=== PATIENT | female | born 1955 | race Caucasian/White ===

== ENCOUNTER 2016-09-20 08:27 | Day surgery (SDC) | payer OTHER ==
[2016-09-20] VITALS (8 sets, daily range): BP systolic 107–150; BP diastolic 59–97; PULSE 53–60; RESP 12–17; O2SAT 95–99
[~2016-09-20] VITALS: Ht 167.6 cm; Wt 74.8 kg
[~2016-09-20 08:27] MED LIST: ALBU8.5H4 IH; BUPR100T6 PO; GABA-502 PO; GUAN2TAB PO; LISI-567 PO; LOVA20TA PO; METF-496 PO; METF10002 PO; PROZ20 PO
[2016-09-20] MEDS ORDERED: Ondansetron 2 mg/mL 2 mL Inj ONE (08:28)
[2016-09-20] MEDS ORDERED: Propofol 10,000 mCg/mL 20 mL Inj ONE (08:28)
[2016-09-20] MEDS ORDERED: fentaNYL-PF 50 mCg/mL 2 mL Inj ONE ×2 (08:28→09:07)
[2016-09-20] MEDS ORDERED: Lactated Ringer's 1,000 ML IV ONE (09:11)
[2016-09-20] MEDS: levoFLOXacin Inj 500 MG in IV Premix 1 EACH IV ONE ×2 (11:23→11:42)
[2016-09-20] MEDS ORDERED: fentaNYL-PF 50 mCg/mL 2 mL Inj IVPUSH PRN (11:25)
[2016-09-20] MEDS ORDERED: Dexamethasone 4 mg/mL Inj IVPUSH PRN (11:25)
[2016-09-20] MEDS ORDERED: MetoCLOpramide 5 mg/mL 2 mL Inj IVPUSH PRN (11:25)
[2016-09-20] MEDS ORDERED: HYDROmorphone 1 mg/mL Inj IVPUSH PRN (11:25)
[2016-09-20] MEDS ORDERED: Lactated Ringer's 500 ML IV PRN (11:25)
[2016-09-20] MEDS ORDERED: Ondansetron 2 mg/mL 2 mL Inj IVPUSH PRN (11:25)
[2016-09-20] MEDS ORDERED: EPHEDrine Sulfate 50 mg/mL Inj IVPUSH PRN (11:25)
[2016-09-20] MEDS ORDERED: Phenylephrine 10,000 mCg/mL Inj IVPUSH PRN (11:25)
--- NOTE | 2016-09-20 11:25 | PCM.HPANE ---
Patient Data Date of Service: Sep 20, 2016 Surgeon Admitting Provider: Attending Provider:Velia De Los Santos MD Primary Care Physician:Yusuf Other Provider:Lila Boyd Anesthesia Reason for Visit Left Ureteral Stone Ht/WT & BMI Height (Feet): 5 Height (Inches): 6.00 Weight (Kilograms): 74.800 Body Mass Index 26.00 Allergies Coded Allergies: latex (Verified Allergy, Severe, HIVES, 05/06/14) Past Anesthesia History Anesthesia History: Denies:: Abnormal Airway, Anesthesia Reactions, Difficult Intubation, Fam Anesthesia Reaction, Fam Malignant Hypertherm, Malignant Hyperthermia Diabetes History Hx Diabetes?: Yes (type II) Type of Diabetes: Type II Glycemic Control: Oral Medication Current Bedside Blood Glucose: 144 MRSA MRSA: Yes (10 yrs ago) Medications Hypertension Medication: Yes (Lisinopril) Home Meds Incl Beta Patt: No Reported Medications Guanfacine 2 Mg Tablet2 Mg PO HS 09/19/16 Metformin ER 1,000 Mg Tablet1,000 Mg PO HS Ref 0 09/19/16 Albuterol HFA 8.5 Gm Hfa.aer.ad1 Puff IH Q4 #1 INHALER Ref 0 05/06/14 Lisinopril 20 Mg Tayatx84 Mg PO DAILY 30 Days Ref 0 05/06/14 Bupropion (Wellbutrin)100 Mg Pbfeqp085 Mg PO DAILY 30 Days Ref 0 05/06/14 Fluoxetine (Prozac)20 Mg Cap60 Mg PO DAILY 30 Days Ref 0 05/06/14 Gabapentin 300 Mg Lsidxlk229 Mg PO TID 30 Days Ref 0 05/06/14 Metformin 1,000 Mg Tablet1,000 Mg PO AM 30 Days Ref 0 05/06/14 Discontinued Reported Medications Lovastatin 20 Mg Bapbdy88 Mg PO HS #30 TABLET Ref 0 05/06/14 Guanfacine HCl (Tenex)1 Mg Tablet1.5 Mg PO QPM 05/06/14 Guanfacine HCl (Tenex)1 Mg Tablet0.5 Mg PO QAM 05/06/14 Omeprazole Magnesium (Omeprazole)20 Mg Capsule.dr40 Mg PO DAILY 30 Days Ref 0 05/06/14 Chlorthalidone 25 Mg Xrfwmk02 Mg PO DAILY #30 TABLET 05/06/14 Metformin 500 Mg Zyeihp925 Mg PO PM 30 Days Ref 0 05/06/14 History History of ENT Problems?: No HEENT History: Denies:: Abnormal Airway Cataracts Difficult Intubation Dysphagia Glaucoma Hearing Problem Sinus Problem TMJ Denture Type: Full- Upper Teeth Condition: Within Normal Limits Hx of Heart Problems?: Yes Cardiovascular History: Positive for:: Hypertension Denies:: Abdominal Aortic Aneurism Atrial Fibrillation Cardiac Surgery Chest Pain Congestive Heart Failure Coronary Artery Disease Edema Heart Murmur Irregular Heartbeat Pacemaker Peripheral Vascular Rheumatic Fever Thrombophlebitis Valvular Heart Disease Hx of Respiratory Problem?: Yes Respiratory History: Positive for:: COPD Dyspnea (RINCON W/ WHEEZING) Use of Inhalers / NEBS (Albuterol) Denies:: Asthma Chest Surgery Emphysema Hemoptysis Oxygen Administration Pneumonia Pulmonary Embolism Tuberculosis Use of C-PAP Machine Other History/Comment Patient poorly optimized from respratory standpoint. PFTs per pt with "45% of normal lung function". I cannot find her formal PFTs, but I believe the to be a very good historian. She is on albuterol PRN. She has taen it in my presence today. If this were not an urgent procedure, I would consider postponing surgery. However, she has intermittent fevers and has had some serious complications in the past from UTIs. She should have surgery today. I consider spinal anesthesia, however, she has stage 4 cirrhosis and per my review of the litterature, there is no benefit in spinal anesthesia vs GA in preventing post-op respiratory complications. I acknowledge that in general, spinal may be superior to GA to minimizing reparatory complications, but the patient also expresses significant anxiety about spinal anesthesia. For this very shot procedure, I feel that a GA is an acceptable approach. I have consented them of the risk of post-op respratory complications. More importantly, I have verified that during my H&P, we have set up an appointment with her PCP to address her COPD for an upcoming, and more invasive, planned procedure. Hx Neurologic Problems?: No Neurological History: Denies:: Alzheimer's Disease CVA Dementia Dizziness Headaches Multiple Sclerosis Parkinson's Disease Seizures TIA Hx of GI Problems?: Yes Gastrointestinal History: Positive for:: Cirrhosis Hx of Problems?: Yes Genitourinary History: Positive for:: Kidney Stones (LT KIDNEY/URETER CALCULOUS=CURRENT PROBLEM) Urinary Tract Infection (Reoccuring possibly from retained stone) Denies:: HX of Hemodialysis HX of Peritoneal Dialysis: No Female Hx: Denies:: Currently (S/P C/S) Endometriosis Pelvic Inflammatory Problems with Breasts? Skin History: Positive for:: History Skin Disorders? (RASHES for years bx negative) Denies:: Pressure Ulcers Hx Musculoskeletal Problems?: No Musculoskeletal History: Positive for:: Fibromyalgia Denies:: Back Injury Degenerative Joint Joint Replacement Musculoskeletal Trauma Myasthenia Gravis Osteoarthritis Rheumatoid Arthritis Systemic Lupus Hx of Psycho/Social Problems?: Yes Psycho Social History: Positive for:: Anxiety Hx Depression Denies:: Bipolar Disorder Suicide Attempt Hx Surgeries?: Yes (Kidney stone with stent) Hx Any Other Health Problems?: Yes Other History: Positive for:: Hospitalization (Kidney stones) Denies:: Cancer Endocrine Disease Thyroid Disease History Blood Transfusions: Positive for:: Accept Blood Products? Denies:: Blood Transfusions Hx Diabetes: Yes (type II)Bedside Blood Glucose: 144 Hx Alcohol Use: NoHx Substance Use: No Smoking Status: Former Smoker Have You Smoked inLast 12 mo: No Stop/Bang S-Snoring: Do You Snore Loudly: No T-Tired: feel tired, fatigued: Yes O-Obsered: Observed not breath: No P-Blood Pressure: treated: Yes B- Body Mass Index > 35 kg/m2: No A- Age over 50: Yes N- Neck Large Circumference: No G- Gender Male: No LAURA Total Score: 3 LAURA Risk Assessment: Low Risk, <3 Yes Risk Assessment Category Category 1A: Patient has history of documented sleep apnea, and HAS NOT received any narcotic, sedative or anesthesia administration during this stay. Category 1B: Patient has history of documented sleep apnea, and HAS received any narcotic , sedative or anesthesia administration during this stay Category 2: Patient has SUSPECTED Obstructive Sleep Apnea, and HAS received any narcotic , sedative or anesthesia administration during this stay. Category 3: Patient has SUSPECTED Obstructive Sleep Apnea and HAS NOT received narcotic, sedative or anesthesia administration during this stay. Category 4: Outpatient in Procedural Areas with known sleep apnea or who screen positive for High Risk via the STOP/BANG questionnaire. Exam Exam Vital Signs Vital Signs Date Time Temp Pulse Resp B/P Pulse Ox O2 Delivery O2 Flow Rate FiO2 09/20/16 09:13 36.9 53 14 133/94 97 Room Air General Appearance: Alert, Oriented X3 HEENT/AIRWAY: MP 2 Lungs: Clear to Auscultation Heart: Exam Unremarkable Additional Information Careful asculations reveals B/L breath sounds without wheeze. Meds/Labs/Diagnostics Admission Meds Current Medications Fentanyl Citrate 100 mcg 100 mcg STK-MED ONCE .ROUTE Last administered on 09:18; Start 09/20/16 at 09:07; Stop 09/20/16 at 09:08; Status DC Lactated Ringer's (Lr) 1,000 ml @ ud STK-MED ONCE IV Last administered on 09/20 09:11; Start 09/20/16 at 09:11; Stop 09/20/16 at 09:12; Status DC Bedside Blood Glucose: 144 Plan Impression Patient chart reviewed, patient interviewed and anesthestic plan with risks, benefits, and alternatives discussed, and informed consent obtained. NPO per Anesth. Guidelines: Yes ASA Physical Status: ASA3 Severe Disease Anesthetic Plan: GA Bene/Risks/Altern/Consents: Yes HP Complete Prior to Induction: Yes Chay Redmond MD Sep 20, 2016 11:25
[2016-09-20] MEDS: Lactated Ringer's 1,000 ML IV SCH ×2 (12:00→12:50)
[2016-09-20] MEDS ORDERED: Belladonna Alk-Opium 60 mg Rectal Suppository RECTAL ONE ×2 (12:02)
[2016-09-20] MEDS ORDERED: Ondansetron 8 mg ODT Tablet PO PRN (12:20)
[2016-09-20] MEDS ORDERED: HYDROcodone-APAP 5-325 mg Tablet PO PRN (12:20)
--- NOTE | 2016-09-20 12:21 | PCM.ANEP1 ---
Post Anesthesia PACU Phase 1 Assessment Vital Signs Vital Signs Date Time Temp Pulse Resp B/P Pulse Ox O2 Delivery O2 Flow Rate FiO2 09/20/16 12:15 58 12 141/97 99 Simple Mask 8 09/20/16 12:11 37.0 58 13 127/78 99 Simple Mask 8 09/20/16 09:13 36.9 53 14 133/94 97 Room Air Anesthetic Administered: GA Level of Alertness: Sleepy, easy to arouse Pain: No Nausea or Vomiting: No CV Function & Hydration Stable: Yes Airway Device: Oxygen Delivery: Nasal Cannula Lungs: Clear to Auscultation PACU Phase 2 Assessment Complications: No Follow up Care: No Patient Instructions Provided: N/A Chay Redmond MD Sep 20, 2016 12:21
--- NOTE | 2016-09-21 13:57 | OP ---
[address] [address] OPERATIVE REPORT PATIENT: NARESH KHALIL : 1955 MR#: [id number] ADMIT: 09/20/2016 JOB ID: [id number] DATE OF SURGERY: 09/20/2016 SURGEON: Velia De Los Santos MD PROCEDURE: Cystoscopy with left retrograde pyelogram and left-sided double-J stent placement. ANESTHESIA: General. PREOPERATIVE DIAGNOSIS(ES): Large renal pelvis stone and large proximal ureteral stone. Febrile, with presumed urine source overnight. POSTOPERATIVE DIAGNOSIS(ES): Large renal pelvis stone and large proximal ureteral stone. Febrile, with presumed urine source overnight. INDICATIONS: The patient is a 61-year-old woman with a longstanding history of nephrolithiasis who had been evaluated and set up earlier for percutaneous nephrolithotomy for a large renal pelvis stone which was nonobstructing. She does have known recurrent urinary tract infections felt to be seeded from the stone and had been on suppression antibiotics with appropriate coverage. She presented over the holiday weekend to an outside facility. A large chunk of stone had passed into her proximal ureter, causing her renal colicky pain. She was treated and sent home when she was seen in the office on September 18 with complaints of left-sided flank pain, however was afebrile and her urine was clear save for blood. We set her up then for double-J stent placement on September 20. The evening prior to her presentation for surgery, she said she had some subjective fevers to 101 and some sweats. No particular urinary tract symptoms; however, with ongoing discomfort which was significant and the one episode of fever to 101, though afebrile at presentation to the hospital. PROCEDURE IN DETAIL: After appropriate informed consent was obtained, the patient was brought to the operating room. She received IV antibiotics prior to onset of the procedure. SCDs were placed. Adequate general anesthesia was induced. She has carefully placed in dorsal lithotomy position. All pressure points were carefully padded. Cleaned, prepped, and draped in the usual sterile fashion. Rigid scope was introduced into the patient's bladder, which was noted to be clear. Urine was clear. The left-sided ureteral orifice was cannulated. Retrograde pyelogram revealed the location of the large proximal stone. We were able, with some minimal difficulty (we needed an angled wire to do) to get a wire up past the level of the stone and then ultimately a 6-Syrian x 24 cm double-J stent was placed under direct visual guidance for the distal end and fluoroscopic guidance for the proximal end. Once the stent was in place, there was considerable debris that came down. No osmany purulence and no odor, however it was decompressed nicely. As some of this was irrigated out we did take a culture from the bladder from post the obstruction to send for C and S. The patient had been treated, however this was urine that had been upstream. She tolerated the procedure well. There was minimal hematuria also irrigated out. She was awakened and taken in stable condition to the postanesthesia care unit.
== END 2016-09-20 23:59 | disposition home or self-care (01) ==
LOC: SAS 08:27
PROVIDERS: ATTEND Urology
DX: N20.1 Calculus of ureter (principal); E11.40 Type 2 diabetes mellitus with diabetic neuropathy, unspecified; B19.20 Unspecified viral hepatitis C without hepatic coma; K21.9 Gastro-esophageal reflux disease without esophagitis; I48.91 Unspecified atrial fibrillation; I10 Essential (primary) hypertension; E78.00 Pure hypercholesterolemia, unspecified; J44.9 Chronic obstructive pulmonary disease, unspecified; Z79.84 Long term (current) use of oral hypoglycemic drugs; Z87.891 Personal history of nicotine dependence
CPT/HCPCS: 52332; 74420; 87086; C2617; J2250; J2405; J3010; J7120; Q9967

== ENCOUNTER 2016-10-15 00:59 | Day surgery (SDC) | payer OTHER ==
[~2016-10-15] VITALS: Ht 167.6 cm; Wt 72.0 kg
[2016-10-15] VITALS (10 sets, daily range): BP systolic 119–166; BP diastolic 64–91; PULSE 59–72; RESP 14–16; O2SAT 96–98
[~2016-10-15 00:59] MED LIST changes: +ALBU8.5H2 INHALATION; -ALBU8.5H4 IH; -BUPR100T6 PO; +BUPR100T7 PO; -LOVA20TA PO; -METF-496 PO; +METF1000 PO; -METF10002 PO; +OMEP20TA86 PO; +SUCR1ORA2 PO
--- NOTE | 2016-10-15 07:00 | NUR ---
ADMISSION NOTE FEMALE PT ADMITTED FOR NEPHROSTOMY TUBE PLACEMENT. DISCUSSED PLAN OF CARE WITH PT AND . SEE ADMIT AND FLOW SHEET
[2016-10-15] MEDS ORDERED: MULT-1073 PO (07:42)
[2016-10-15] MEDS ORDERED: PROM25TA14 PO (07:42)
[2016-10-15] MEDS ORDERED: HYDR-4003 PO (07:42)
[2016-10-15] MEDS ORDERED: PROP10TA8 PO (07:42)
[2016-10-15] MEDS ORDERED: Heparin 10,000 Unit/1,000 mL NS Premix IV ONE (07:58)
[2016-10-15] MEDS ORDERED: CeFAZolin 2 Gm/50 mL D5W Duplex Bag IV ONE (08:20)
[2016-10-15] MEDS ORDERED: fentaNYL-PF 50 mCg/mL 2 mL Inj ONE ×2 (09:33→09:56)
--- NOTE | 2016-10-15 10:35 | NUR ---
POST PROCEDURE NOTE RETURNED FROM SECURITY CONTROLS ASSESSOR. LEFT FLANK DRESSING INTACT. NO DISCOMFORT SEE FLOW SHEET
--- NOTE | 2016-10-15 11:41 | DRSVH ---
PROCEDURE: NEPHROSTOMY WIRE PLACEMENT (P) 1. Left nephrostomy tube placement. 2. Left antegrade pyelogram. 3. Conscious sedation for 54 minutes. INDICATIONS: LT KIDNEY STONE TECHNIQUE: The indications, alternatives, benefits, risks, and complications of the procedure were e xplained to the patient and any family members present. Informed written consent was obtained and pl aced in the chart. The patient was brought to the angiography suite. Conscious sedation was adminis tered intravenously by correction staff, with continuous cardiorespiratory monitoring. The patient was placed in the oblique position on the angiography table. The back was prepped and dr aped in a sterile fashion, with 1% lidocaine used for local anaesthesia. A left inferior pole netting inspector ior renal calyx containing calculus was accessed using fluoroscopic guidance with an Accustick set. A small amount of air was instilled to confirm positioning of the needle. Contrast was injected thro ugh the Accustick needle for an antegrade pyelogram. An 0.018 Mandrill wire was advanced into the re nal pelvis and exchanged for an Accustick dilator/sheath. A 035 wire was advanced into the proximal to mid ureter. After dilatation of the nephrostomy tract, a 5 Armenian Rene sheath was advanced and t he tip was placed within the ureter. A small amount of contrast was injected through the nephrostomy catheter. Catheter was secured to the skin surface. The patient was stable during the course of the procedure. FLUOROSCOPY TIME: 11.9 minutes. COMPARISON: Outside Film, CT, CT KUB, 09/13/2016, 13:42. FINDINGS: Inferior pole renal calyx is present. Ureteral stent is present. At the conclusion of the procedure, and Rene sheath traverses the inferior pole calyx containing the calculus, the tip of whi ch is within the mid ureter. IMPRESSION: Nephrostomy placement described above using Rene sheath and inferior pole access. Dictated by: Joanne Cooper M.D. on 10/15/2016 at 11:37 Approved by: Joanne Cooper M.D. on 10/15/2016 at 11:40
[2016-10-15] MEDS ORDERED: HYDROcodone-APAP 5-325 mg Tablet PO ONE (13:10)
--- NOTE | 2016-10-15 13:40 | NUR ---
DISCHARGE NOTE UP IN ROOM. INSTRUCTIONS GIVEN. HOME WITH
[2016-10-15] MEDS ORDERED: CeFAZolin Inj 2 GM in IV Premix 1 EACH IV ONE (14:20)
[2016-10-15] MEDS ORDERED: 0.9% Sodium Chloride 1,000 ML IV SCH (14:25)
== END 2016-10-15 23:59 | disposition home or self-care (01) ==
LOC: SOUO 00:59
PROVIDERS: ATTEND Radiology Diagnostic Radiology
DX: N20.2 Calculus of kidney with calculus of ureter (principal); Z96.0 Presence of urogenital implants; Z87.442 Personal history of urinary calculi; J44.9 Chronic obstructive pulmonary disease, unspecified; E11.9 Type 2 diabetes mellitus without complications; I10 Essential (primary) hypertension; E78.5 Hyperlipidemia, unspecified; B19.20 Unspecified viral hepatitis C without hepatic coma; Z79.84 Long term (current) use of oral hypoglycemic drugs
CPT/HCPCS: 50395; 74485; 99152; 99153; C1769; C1894; J2250; J3010; J7030; Q9967

== ENCOUNTER 2016-10-17 05:40 | Day surgery (SDC) | payer OTHER ==
--- NOTE | 2016-10-11 14:15 | PCM.ANEPRE ---
Anesthesia Pre-Op Review Reason for Review: pulm concerns noted by prior anes- Anesthesia Recommendations: Proceed with Procedure Additional Comments This patient underwent a General anesthetic with LMA on september 20, 2016. Her intraop and post course were uneventful. Apparently she was admitted recently to [facility] for asthma exacerbation but is reported to have " Fine Lungs now " by here PCP. Evaluate on DOS and if she looks good advise that you proceed. Pop Norman MD Oct 11, 2016 14:15
[2016-10-17] VITALS (17 sets, daily range): BP systolic 112–233; BP diastolic 16–153; PULSE 63–105; RESP 11–18; O2SAT 94–99
[~2016-10-17] VITALS: Ht 167.6 cm; Wt 75.3 kg
[~2016-10-17 05:40] MED LIST changes: +HYDR-4003 PO; +MULT-1073 PO; +PROM25TA14 PO; +PROP10TA8 PO
[2016-10-17] MEDS: Lactated Ringer's 1,000 ML IV SCH ×4 (05:40→11:13)
[2016-10-17] MEDS ORDERED: Propofol 10,000 mCg/mL 20 mL Inj ONE (05:41)
[2016-10-17] MEDS ORDERED: Rocuronium 10 mg/mL 5 mL Inj ONE (05:41)
[2016-10-17] MEDS ORDERED: fentaNYL-PF 50 mCg/mL 2 mL Inj ONE (05:41)
[2016-10-17] MEDS ORDERED: Ondansetron 2 mg/mL 2 mL Inj ONE (05:41)
[2016-10-17] MEDS ORDERED: Dexamethasone 4 mg/mL Inj ONE (05:41)
[2016-10-17] MEDS ORDERED: CeFAZolin 2 Gm/50 mL D5W IV Premix IV ONE (06:00)
[2016-10-17 06:52] LABS: Mean Corpuscular Hemoglobin 29.2 pg (27.0-35.0); Mean Corpuscular Volume 89.4 fL (81-100)
[2016-10-17 07:16] LABS: INR 0.94 ratio
--- NOTE | 2016-10-17 07:19 | PCM.HPANE ---
Patient Data Surgeon Admitting Provider: Attending Provider:Candi Su MD Primary Care Physician:[facility] Other Provider:Lila Boyd Anesthesia Reason for Visit Left Kidney Stone Ht/WT & BMI Height (Feet): 5 Height (Inches): 6.00 Weight (Kilograms): 72.8 Body Mass Index 25.00 Allergies Coded Allergies: latex (Verified Allergy, Severe, HIVES, 10/15/16) Past Anesthesia History Anesthesia History: Denies:: Abnormal Airway, Anesthesia Reactions, Difficult Intubation, Fam Anesthesia Reaction, Fam Malignant Hypertherm, Malignant Hyperthermia Diabetes History Hx Diabetes?: Yes Type of Diabetes: Type II Glycemic Control: Oral Medication Current Bedside Blood Glucose: 116 MRSA MRSA: Yes (10 yrs ago) Medications Hypertension Medication: Yes Home Meds Incl Beta Patt: Yes (propranolol 10mg) Date Beta Patt Taken: Oct 16, 2016 Time Beta Patt Taken: 0900 Reported Medications Hydrocodone-Acetaminophen 5-325 mg 1 Each Tablet1 Tablet PO Q4H PRN For Pain Ref 0 10/15/16 Propranolol HCl 10 Mg Tablet5 Mg PO BID 90 Days Ref 0 10/15/16 Promethazine 25 Mg Vesbeu09 Mg PO Q6H PRN For Nausea Ref 0 10/15/16 Multivits-Min/FA/Lycopene/Lut (Centrum Silver Tablet)1 Each Tablet1 Each PO DAILY 10/15/16 Sucralfate Susp (Carafate Susp)1 Gm/10 Ml Oral.susp1 Gm PO QID Ref 0 10/11/16 Omeprazole 20 Mg Tablet.dr20 Mg PO BID Ref 0 10/11/16 Metformin (Glucophage)1,000 Mg Tablet1,000 Mg PO BID Ref 0 10/10/16 Bupropion ER (Wellbutrin SR)100 Mg Tablet.er300 Mg PO DAILY Ref 0 10/10/16 Albuterol HFA (Proair HFA)8.5 Gm Hfa.aer.ad2 Puffs INHALATION Q4H PRN For Severe Pain #1 INHALER 10/10/16 Guanfacine 2 Mg Tablet2 Mg PO HS 09/19/16 Lisinopril 20 Mg Wctegb21 Mg PO DAILY 30 Days Ref 0 05/06/14 Fluoxetine (Prozac)20 Mg Cap60 Mg PO DAILY 30 Days Ref 0 05/06/14 Gabapentin 300 Mg Sjhfgcg587 Mg PO TID 30 Days Ref 0 05/06/14 Discontinued Reported Medications Metformin ER 1,000 Mg Tablet1,000 Mg PO HS Ref 0 09/19/16 Albuterol HFA 8.5 Gm Hfa.aer.ad1 Puff IH Q4 #1 INHALER Ref 0 05/06/14 Bupropion (Wellbutrin)100 Mg Kwwjkt294 Mg PO DAILY 30 Days Ref 0 05/06/14 Metformin 1,000 Mg Tablet1,000 Mg PO AM 30 Days Ref 0 05/06/14 History History of ENT Problems?: No HEENT History: Denies:: Abnormal Airway Cataracts Difficult Intubation Dysphagia Hearing Problem Sinus Problem TMJ Denture Type: Full- Upper Teeth Condition: No Teeth Hx of Heart Problems?: No Cardiovascular History: Positive for:: Hypertension Denies:: Abdominal Aortic Aneurism Atrial Fibrillation Cardiac Surgery Chest Pain Congestive Heart Failure Edema Heart Murmur Irregular Heartbeat Pacemaker Rheumatic Fever Thrombophlebitis Valvular Heart Disease Hx of Respiratory Problem?: Yes Respiratory History: Positive for:: COPD Denies:: Asthma Chest Surgery Cough Dyspnea Emphysema Hemoptysis Oxygen Administration Pneumonia Pulmonary Embolism Tuberculosis Use of C-PAP Machine Use of Inhalers / NEBS Hx Neurologic Problems?: No Neurological History: Positive for:: Headaches Denies:: Alzheimer's Disease CVA Dementia Dizziness Multiple Sclerosis Parkinson's Disease Seizures Hx of GI Problems?: Yes Gastrointestinal History: Positive for:: Cirrhosis Gastrointestinal Bleeding Rectal Bleeding Hx of Problems?: Yes Genitourinary History: Positive for:: Kidney Stones (left kidney stone current admission problem) Urinary Tract Infection (Reoccuring possibly from retained stone) Denies:: HX of Hemodialysis HX of Peritoneal Dialysis: No Female Hx: Denies:: Currently Endometriosis Pelvic Inflammatory Problems with Breasts? Skin History: Positive for:: History Skin Disorders? (RASHES for years bx negative) Denies:: Pressure Ulcers Hx Musculoskeletal Problems?: No Musculoskeletal History: Denies:: Back Injury Degenerative Joint Joint Replacement Musculoskeletal Trauma Systemic Lupus Hx of Psycho/Social Problems?: Yes Psycho Social History: Positive for:: Anxiety Hx Depression Denies:: Bipolar Disorder Suicide Attempt Hx Surgeries?: Yes (Kidney stone with stent) Hx Any Other Health Problems?: Yes Other History: Positive for:: Hospitalization (Kidney stones) Denies:: Cancer Endocrine Disease Thyroid Disease History Blood Transfusions: Denies:: Blood Transfuse Reaction Blood Transfusions Hx Diabetes: YesBedside Blood Glucose: 116 Hx Alcohol Use: NoHx Substance Use: Yes (DISTANT HISTORY OF) Smoking Status: Former Smoker Have You Smoked inLast 12 mo: No Stop/Bang Treated for Sleep Apnea?: No Do You Have a CPAP Machine?: No S-Snoring: Do You Snore Loudly: No T-Tired: feel tired, fatigued: No O-Obsered: Observed not breath: No P-Blood Pressure: treated: Yes B- Body Mass Index > 35 kg/m2: No A- Age over 50: Yes N- Neck Large Circumference: No G- Gender Male: No LAURA Risk Assessment: Low Risk, <3 Yes Risk Assessment Category Category 1A: Patient has history of documented sleep apnea, and HAS NOT received any narcotic, sedative or anesthesia administration during this stay. Category 1B: Patient has history of documented sleep apnea, and HAS received any narcotic , sedative or anesthesia administration during this stay Category 2: Patient has SUSPECTED Obstructive Sleep Apnea, and HAS received any narcotic , sedative or anesthesia administration during this stay. Category 3: Patient has SUSPECTED Obstructive Sleep Apnea and HAS NOT received narcotic, sedative or anesthesia administration during this stay. Category 4: Outpatient in Procedural Areas with known sleep apnea or who screen positive for High Risk via the STOP/BANG questionnaire. Exam Exam Vital Signs Vital Signs Date Time Temp Pulse Resp B/P Pulse Ox O2 Delivery O2 Flow Rate FiO2 10/17/16 06:20 35.9 63 16 151/86 97 Room Air General Appearance: Alert, Oriented X3, Cooperative, No Acute Distress HEENT/AIRWAY: MP 1 Lungs: Clear to Auscultation Heart: Exam Unremarkable, Regular Rate/Rhythm, Normal S1, Normal S2, No Murmurs /Rubs/Gallops Meds/Labs/Diagnostics Admission Meds Current Medications Lactated Ringer's (Lr) 1,000 ml @ 120 mls/hr Q8H20M IV Last administered on t 05:40; Start 10/17/16 at 05:00; Stop 10/17/16 at 13:19 Bedside Blood Glucose: 116 Labs Test 10/17/16 06:38 White Blood Count 4.4th/mm3 (3.8-10.1) Red Blood Count 3.67mil/mm3 (3.90-5.20) Hemoglobin 10.7g/dL (12.0-15.6) Hematocrit 32.8% (35.0-46.0) Mean Corpuscular Volume 89.4fL (81-100) Mean Corpuscular Hemoglobin 29.2pg (27.0-35.0) Mean Corpuscular Hemoglobin Concent 32.6% (32.0-37.0) Red Cell Distribution Width 14.2% (12.3-15.4) Platelet Count 169bil/L (150-400) Plan Impression Patient chart reviewed, patient interviewed and anesthestic plan with risks, benefits, and alternatives discussed, and informed consent obtained. NPO per Anesth. Guidelines: Yes ASA Physical Status: ASA3 Severe Disease Anesthetic Plan: GA Bene/Risks/Altern/Consents: Yes HP Complete Prior to Induction: Yes Juan Costello MD Oct 17, 2016 07:19
[2016-10-17] MEDS ORDERED: Lactated Ringer's 500 ML IV PRN (08:22)
[2016-10-17] MEDS ORDERED: Lactated Ringer's 1,000 ML IV SCH (08:22)
[2016-10-17] MEDS ORDERED: Labetalol 5 mg/mL 4 mL Inj IV PRN (08:25)
[2016-10-17] MEDS ORDERED: EPHEDrine Sulfate 50 mg/mL Inj IVPUSH PRN (08:25)
[2016-10-17] MEDS ORDERED: Phenylephrine 10,000 mCg/mL Inj IVPUSH PRN (08:25)
[2016-10-17] MEDS ORDERED: Ondansetron 2 mg/mL 2 mL Inj IVPUSH PRN (08:25)
[2016-10-17] MEDS ORDERED: Dexamethasone 4 mg/mL Inj IVPUSH PRN (08:25)
[2016-10-17] MEDS ORDERED: HYDROmorphone 1 mg/mL Inj IVPUSH PRN (08:25)
[2016-10-17] MEDS ORDERED: MetoCLOpramide 5 mg/mL 2 mL Inj IVPUSH PRN (08:25)
--- NOTE | 2016-10-17 09:16 | PCM.ANEP1 ---
Post Anesthesia PACU Phase 1 Assessment Vital Signs Vital Signs Date Time Temp Pulse Resp B/P Pulse Ox O2 Delivery O2 Flow Rate FiO2 10/17/16 06:20 35.9 63 16 151/86 97 Room Air Anesthetic Administered: GA Level of Alertness: Sleepy, easy to arouse DERAS's with Equal Strength: Yes Pain: No Nausea or Vomiting: No CV Function & Hydration Stable: Yes Airway Device: Oralpharangeal Airway Oxygen Delivery: Room Air Lungs: Clear to Auscultation Dermatome Level: Full Sensation PACU Phase 2 Assessment Complications: No Follow up Care: No Patient Instructions Provided: Yes Juan Costello MD Oct 17, 2016 09:16
[2016-10-17] MEDS: fentaNYL-PF 50 mCg/mL 2 mL Inj IVPUSH PRN ×2 (09:27→10:04)
[2016-10-17] MEDS ORDERED: Albuterol HFA 60 Puff 8 Gm Inhaler INHALATION PRN (09:30)
[2016-10-17] MEDS ORDERED: hydrOXYzine Inj 50 MG/1 mL SDV IM ONE ×2 (10:15→10:20)
--- NOTE | 2016-10-17 10:25 | OP ---
[address] [address] OPERATIVE REPORT PATIENT: NARESH KHALIL : 1955 MR#: [id number] ADMIT: 10/17/2016 JOB ID: [id number] DATE OF SURGERY: 10/17/2016 PREOPERATIVE DIAGNOSIS(ES): Left kidney stone. POSTOPERATIVE DIAGNOSIS(ES): Left kidney stone. PROCEDURE PERFORMED: 1. Left percutaneous nephrolithotomy. 2. Antegrade nephrostogram. 3. Left ureteral stent removal. 4. Nephrostomy tube placement. SURGEON: Candi Su MD BAKER BREAD: None. FINDINGS: Two wedged-shaped stones. One stone within the lower pole of the kidney approximately 2.5 cm. Left renal pelvis stone approximately 2 cm. ANESTHESIA: General. ESTIMATED BLOOD LOSS: 5 mL. DRAINS: 1. A 5-[place] open-ended Pollack ureteral stent. 2. A 20-[place] Councill tip catheter, silicone, as the nephrostomy tube. 3. Brandt catheter to the bladder. SPECIMENS: Kidney stones. COMPLICATIONS: None. CONDITION: Stable. INDICATION FOR PROCEDURE: The patient is a 61-year-old woman with two relatively large stones, requiring intervention with percutaneous nephrolithotomy. DESCRIPTION OF PROCEDURE: After informed consent was obtained, the patient was taken to the operating room. A time-out was performed identifying correct patient, surgical site, and procedure. General anesthesia smoothly induced. A catheter was placed in the bladder and set to dependent drainage. She was placed in the prone position and all pressure points were identified and carefully padded. The nephrostomy tube that had been placed by Interventional Radiology was prepped, as well as her entire back and flank in the usual sterile fashion. A Super Stiff wire was placed down the nephrostomy tube and into the bladder as seen under fluoroscopy. The nephrostomy tube was then removed and ensured as it was removed in its entirety. An 11 blade was used to incise the skin transversely to approximately 1.5 cm. A 10-[place] dual-lumen ureteral catheter was then placed over the Super Stiff wire past the UPJ. A Sensor tip wire was then loaded through it and guided into the bladder seen under fluoroscopy. The dual-lumen catheter was then back-loaded off of the wires. Over the Super Stiff wire, the NephroMax balloon was placed over it and guided into the renal pelvis as seen under fluoroscopy. It was insufflated to 14 atmospheres of pressure and allowed to set for a few moments. A 30-[place] nephroscope sheath was loaded over it and guided into the calyx as seen under fluoroscopy abutting the stone, which could also be seen under fluoroscopy. The balloon was then deflated and removed. The nephroscope was then passed into the sheath and the stone was found. It was completely destroyed with the cyber wand and suctioned. Next, the proximal coil of the stent was seen in the renal pelvis and it was removed and examined and ensured as removed in its entirety. Next, the nephroscope was then navigated further down the renal pelvis and there was seen the 2nd stone. It was also treated with a cyber wand. Next, flexible cystoscope was then used to navigate the entire kidney, as well as down the proximal ureter. The ureteropelvic junction appeared normal without any heavy edema. An antegrade nephrostogram was performed. There was no extravasation. Given the findings of the renal pelvis, it was decided not to replace the double -J ureteral stent. The cystoscope was then removed. A 20-[place] Councill tip catheter was fashioned from a silicone catheter. It was placed into the renal pelvis as seen under fluoroscopy and the balloon was insufflated with 2 cc of water. The nephroscope sheath was then removed, and a 5-[place] open-ended Pollack was then placed down the distal ureter as seen under fluoroscopy. The wires were then subsequently removed from both tubes. The lateral aspect of the skin incision was then closed subcutaneously with 3-0 chromic. The two tubes were then adhered to the skin via a 2-0 nylon. Kerlix rolls were placed around the tubes and a 3 inch foam tape was placed over this as the wound dressing. She appeared to tolerate the procedure well without any apparent complications. She was reversed from general anesthesia and taken to PACU in stable condition. GAGE
[2016-10-17] MEDS ORDERED: Albuterol 2.5 mg/3 mL Inhalation Solution NEB PRN (11:10)
[2016-10-17] MEDS: 0.9% Sodium Chloride 1,000 ML IV SCH ×2 (11:13→19:15)
[2016-10-17] MEDS: HYDROmorphone 1 mg/mL Inj IVPUSH PRN ×2 (11:47→16:08)
--- NOTE | 2016-10-17 13:50 | NUR ---
Post op Pt brought to room 1010 at 1059 on gurney and was able to slide self over to bed. Pain 8/10 in back. SCD's in place, RA, A&O x 3, DERAS, VSS other than elevated BP. Pt has martinez in place that is draining dark red urine to gravity. Bulky ABD and foam tape over nephrostomy that is connected to Martinez bad also has dark red output. Pt wanting to drink and diet AAT. Called day surgery for belongings and to notify that pt is in room. Oriented to room and call light, bed in low, start q1 hour monitoring.
--- NOTE | 2016-10-17 14:46 | PCM.DISURG ---
Candi Su MD 10/17/16 1446: Surgical Discharge Instruction Date of Service Oct 17, 2016 Dates of Hospitalization Date of Hospital Admission Providers Admitting Physician: Primary Care Physician: [facility] Attending Physician: Candi Su MD Activity Discharge Activity-General: No lifting >10 pounds for 4-6 weeks, No driving while taking narcotic Dressing and Incisional Care Dressing Care: Keep dressing clean, dry & intact Hygiene: May shower, NO bathtub, hot tub or whirlpool Follow Up Plan Call your provider for: Fever, Shortness of breath, Increasing abdominal pain, Vomiting Gerda Chan PA-C 10/18/16 1152: Surgical Discharge Instruction Diet Discharge Diet: No restrictions Activity Discharge Activity-General: No lifting >10 pounds for 4-6 weeks, No driving while taking narcotic Dressing and Incisional Care Dressing Care: Keep dressing clean, dry & intact Hygiene: May shower, NO bathtub, hot tub or whirlpool Follow Up Plan Call your provider for: Fever, Shortness of breath, Increasing abdominal pain, Vomiting Candi Su MD Oct 17, 2016 14:46 Gerda Chan PA-C Oct 18, 2016 11:52
[2016-10-17] MEDS: Pantoprazole 20 mg ER24 Tablet PO SCH (16:33)
--- NOTE | 2016-10-17 18:02 | NUR ---
Nephrostomy/Activity Pt having increasing abd pain 8/10 and bag portion of nephrostomy clotted off. Clamped and flushed line to clear, along with milking bag was able to regain flow. Nephrostomy portion of line having decreasing flow, pt ambulated to chair and flow increased. MD was paged and didn't respond. Pt's AC BG was 266 and no sliding scale ordered, paged MD about this as well.
[2016-10-17] MEDS: oxyCODONE-Acetamin 5-325 mg Tablet PO PRN (19:47)
[2016-10-17] MEDS ORDERED: guanFACINE 2 mg Tablet PO SCH (21:00)
[2016-10-18 00:10] VITALS: BP 158/85; PULSE 76; RESP 18; O2SAT 98
[2016-10-18] MEDS: HYDROmorphone 1 mg/mL Inj IVPUSH PRN ×2 (00:29→12:35)
--- NOTE | 2016-10-18 00:52 | NUR ---
Nephrostomy Patient's Nephrostomy began to leak out of dressing instead of down through tube when patient fell asleep on side. When patient rolled back over on to her back, the Nephrostomy tube began draining appropriately again. Asked patient to remain on back to avoid leaking. Message was left for physician, but didn't receive a response. Nephrostomy continued to drain to gravity after patient moved to her back. Brandt patent and draining to gravity. Urine sanguinous in color. Vitals stable. Care continues.
[2016-10-18] MEDS: 0.9% Sodium Chloride 1,000 ML IV SCH ×4 (03:14→17:25)
[2016-10-18 04:50] VITALS: BP 135/72; PULSE 84; RESP 18; O2SAT 97
[2016-10-18] MEDS: oxyCODONE-Acetamin 5-325 mg Tablet PO PRN ×4 (05:22→23:54)
--- NOTE | 2016-10-18 06:09 | NUR ---
Nephrostomy/Brandt Nephrostomy was capped at 0600 with 200cc output for this shift. Brandt catheter was DC'd at 0548. Patient immediately got up to use the bedside commode and had 100cc output with some clotting. Urine output still sanguinous.
[2016-10-18] MEDS: Pantoprazole 20 mg ER24 Tablet PO SCH ×2 (08:22→16:29)
[2016-10-18] MEDS: buPROPion XL 300 mg ER24 Tablet PO SCH (08:32)
[2016-10-18 09:08] VITALS: BP 164/75; PULSE 80; RESP 20; O2SAT 100
--- NOTE | 2016-10-18 10:47 | NUR ---
Dsg Change Brandt removed by previous nurse. Left nephrostomy tube capped per providers orders by previous nurse. Pt. voiding spontaneously. Pale yellow urine. No clots noted. Dressing [id number] serosanguineous fluid. paged by shift supervisor melting regarding this. Carefully changed dressing. Several dry 4x4 gauze stacks surrounding tubes(larger tube with serosanguineous capped, smaller yellow tube open and draining clear fluid into dressing) placed. ABDx3 for reinforcement. Taped securely with Microfoam. Primary nurse paged on-call urology. Waiting for response. Primary nurse at bedside.
--- NOTE | 2016-10-18 13:18 | NUR ---
Urostomy removals PA removed both left nephrostomy tubes at bedside. Dressing reapplied. Drainage expected per PA. Plan to discharge home with dressing supplies. 2mg Dilauded given IV for pain prevention.
--- NOTE | 2016-10-18 13:59 | NUR ---
Dressing saturated Pt notified staff regarding her dressing. Drainage noted through dressing and onto floor, bed, clothing etc. Dressing removed and pressure applied to incision. full pack of steril gauze, and 3 ABDs applied with pressure. Within 5 minutes dressing was saturated and dripping; material changed out and pressure reapplied. Ankit blood noted profusely draining. PAC notified PATRICIA.
[2016-10-18] MEDS ORDERED: Lidocaine 1%/Epi 1:100,000 30 mL MDV ONE (14:24)
[2016-10-18] MEDS ORDERED: LORazepam Oral Conc 2 mg/mL 30 mL Solution PO ONE (14:50)
[2016-10-18 18:00] VITALS: BP 147/76; PULSE 84; RESP 18; O2SAT 98
[2016-10-18 20:21] VITALS: BP 134/84; PULSE 82; RESP 16; O2SAT 98
--- NOTE | 2016-10-18 21:32 | PCM.PNSURG ---
Subjective Date of Service: Oct 18, 2016 Date of Service: Oct 18, 2016 Visit Information: Reason for Visit Left Kidney Stone Surgery/Surgery Date LEFT NEPHROSTOLITHOTOMY 10/17/16 Post-Op Day #1 Date of Admission: Hospital Day # Subjective: Pt reports pain is well controlled with pain medications, denies any n/v. She has been able to void several times without difficulty since catheter was removed this am. Postop General: No Shortness of Breath, No Chest Pain Gastrointestinal: No N/V Postop Activity: Ambulating Independently Objective Vital Sign- Last 8 Hours Date Time Temp Pulse Resp B/P Pulse Ox O2 Delivery O2 Flow Rate FiO2 10/18/16 20:21 36.8 82 16 134/84 98 Room Air 10/18/16 18:00 37.6 84 18 147/76 98 Room Air Intake and Output- Last 8 Hour 10/18/16 Cumulative From/Thru 07:00 10/10/16 10:56 - 10/18/16 05:19 Intake Total 3091 ml Output Total 1330 ml Balance 1761 ml Intake Oral 700 ml IV Total 2391 ml Output Urine Total 1325 ml Estimated Blood Loss 5 ml General: Alert, Oriented X3, No Acute Distress Neck: Supple Lungs: Normal Air Movement Abdomen: Appropriately tender Extremities: Warm Neuro: Cranial Nerves 2-12 nl Catheters: None Result Diagram: 10/18/16 0503 10/18/16 0503 Assessment & Plan Impression POD #1 PCNL Problems: Plan Brandt was removed around 7am, pt was able to void several times without difficulty, minimal PVR. Coude Tip Catheter and Pollack tube were removed around noon without difficulty , minimal drainage. Around 2 pm when pt was ambulatory she began bleeding. Bleeding source was what appeared to be superficial vasculature. Bleeding was compressed, incision and area was prepped and draped in sterile fashion. 9mL lidocaine with epi 1% was administered to site. A 2-0 vicryl was used for closure of incision, with no bleeding. Will keep pt one more night in the hospital, and will check a hgb/hct in the AM as well as incision site before discharging patient. Gerda Darby PA-C Oct 18, 2016 21:32
[2016-10-19] MEDS: 0.9% Sodium Chloride 1,000 ML IV SCH ×2 (01:25→09:25)
--- NOTE | 2016-10-19 03:11 | NUR ---
Dressing Patient's dressing has remained clean dry and intact so far this shift. No signs of blood soaking through. Patient sleeping through most of shift. Pain is well managed with medications. Patient A&OX3. Vitals stable. sleeping at bedside. Care continues.
[2016-10-19] MEDS: oxyCODONE-Acetamin 5-325 mg Tablet PO PRN ×2 (04:14→09:59)
[2016-10-19 04:33] VITALS: BP 130/76; PULSE 77; RESP 16; O2SAT 100
[2016-10-19] MEDS: buPROPion XL 300 mg ER24 Tablet PO SCH (09:52)
[2016-10-19] MEDS: Pantoprazole 20 mg ER24 Tablet PO SCH (09:53)
[2016-10-19 11:51] VITALS: BP 137/77; PULSE 84; RESP 18; O2SAT 97
--- NOTE | 2016-10-19 12:28 | PCM.DISURG ---
Surgical Discharge Instruction Date of Service Oct 19, 2016 Dates of Hospitalization Date of Hospital Admission Providers Admitting Physician: Primary Care Physician: [facility] Attending Physician: Candi Su MD Diet Discharge Diet: No restrictions Activity Discharge Activity-General: No lifting >10 pounds for 4-6 weeks, No driving while taking narcotic Dressing and Incisional Care Dressing Care: Keep dressing clean, dry & intact Hygiene: May shower, NO bathtub, hot tub or whirlpool Additional Instructions Discharge Instructions PLEASE GO TO THE ER IF YOU DEVELOP FEVER (TEMP >100.4), CHILLS, WORSENING PAIN NOT RELIEVED BY PAIN MEDICATIONS, BLEEDING Follow Up Plan Follow Up Plan I will see you for follow up in our office next week. Our office will call you Saturday to schedule this. If you do not hear from our office by Saturday at 10am, please call our office at [phone]. Follow-up Provider (F9): Candi Su MD Mid-level Provider (F9): Gerda Chan PA-C Call your provider for: Fever, Shortness of breath, Increasing abdominal pain, Vomiting Gerda Chan PA-C Oct 19, 2016 12:28
--- NOTE | 2016-10-19 13:33 | NUR ---
Transfer of care/Discharge Care of patient transferred to [place] at 1140 from Nancy BATES. RAMIN with patient to assess for discharge. Discharge orders are complete, and patient discharged to home at 1300 in stable condition. Dressing is clean dry and intact at time of discharge. Additional dressings and tape sent with patient along with all scripts, instructions and belongings. No questions or concerns at this time.
[2016-10-22 10:10] LABS: Stone Color Brown (.)
== END 2016-10-19 14:30 | disposition home or self-care (01) ==
LOC: SAS 05:40 → OSC 11:07 → SAS 10-19 14:30
PROVIDERS: ATTEND Urology
DX: N20.0 Calculus of kidney (principal); J44.9 Chronic obstructive pulmonary disease, unspecified; E11.40 Type 2 diabetes mellitus with diabetic neuropathy, unspecified; Z79.84 Long term (current) use of oral hypoglycemic drugs; I10 Essential (primary) hypertension
CPT/HCPCS: 36415; 50040; 50081; 76001; 80048; 82360; 85014; 85018; 85027; 85610; 85730; 86922; 94640; C1729; J0690; J1100; J1170; J2250; J2270; J2405; J2704; J2765; J3010; J7030; J7120; Q9967

== ENCOUNTER 2016-10-23 08:06 | Emergency (ER) | payer OTHER ==
[~2016-10-23] VITALS: Ht 167.6 cm; Wt 72.7 kg
[2016-10-23 08:11] VITALS: BP 159/79; PULSE 86; RESP 20; O2SAT 100
--- NOTE | 2016-10-23 09:17 | ED.REPORT ---
HPI-Abd Pain F 40 and Over Date of Service Oct 23, 2016 ED Provider: Noe Burrell MD Pt is a 61 y/o female status post left nephrostolithotomy 6 days ago with a history of nephrolithiasis, HTN, DM, cirrhosis, and hepatitis C who presents to the ED c/o the inability to urinate onset this morning. After her surgery, the catheter was taken out and she was still leaking blood and urine that night but it resolved the next day. She was voiding blood clots last night. Additional symptoms include nausea and vomiting last night that has since resolved. She denies fever or abdominal pain. Nursing Notes Stated Complaint: UNABLE TO URINATE Chief Complaint: Female Abdominal Pain Nursing Notes Reviewed: Yes Allergies: Coded Allergies: latex (Verified Allergy, Severe, HIVES, 10/15/16) Scheduled Bupropion ER (Wellbutrin SR) 100 Mg Tablet.er 300 MG PO DAILY Fluoxetine (Prozac) 20 Mg Cap 60 MG PO DAILY Gabapentin (Gabapentin) 300 Mg Capsule 900 MG PO TID Guanfacine (Guanfacine) 2 Mg Tablet 2 MG PO HS Lisinopril (Lisinopril) 20 Mg Tablet 10 MG PO DAILY Metformin (Glucophage) 1,000 Mg Tablet 1,000 MG PO BID Multivits-Min/FA/Lycopene/Lut (Centrum Silver Tablet) 1 Each Tablet 1 EACH PO DAILY Omeprazole (Omeprazole) 20 Mg Tablet.dr 20 MG PO BID Propranolol HCl (Propranolol HCl) 10 Mg Tablet 5 MG PO BID Sucralfate Susp (Carafate Susp) 1 Gm/10 Ml Oral.susp 1 GM PO QID Scheduled PRN Albuterol HFA (Proair HFA) 8.5 Gm Hfa.aer.ad 2 PUFFS INHALATION Q4H PRN PRN For Severe Pain Hydrocodone-Acetaminophen 5-325 mg (Hydrocodone-Acetaminophen 5-325 mg) 1 Each Tablet 1 TABLET PO Q4H PRN PRN For Pain Promethazine (Promethazine) 25 Mg Tablet 25 MG PO Q6H PRN PRN For Nausea General Time Seen by MD: 09:07 Chief Complaint Unable to urinate Hx Obtained From: Patient, Spouse Arrived By: Walk-in Sudden in Onset?: No Onset Occurred: Yesterday Symptom Duration: Since onset Severity: Current: No pain currently Severity: Maximum: Severe Recent Healthcare: Recent doctor visit, Recent hospitalization Similar Sx Previous: Yes Risk Factors )( AAA Risk Stratification Hypertension Smoking Risk factors reviewed Past Medical History Past Medical History Anxiety Nephrolithiasis Cirrhosis Hepatitis C GERD Reports: Diabetes mellitus, Hypertension Reports: Depression Past Surgical History L nephrolithotomy 10/17/16 Smoking History Former Smoker Social History Drug Use: In recovery Other Social History: Good social support Ambulatory Status Independent Review of Systems Constitutional: Denies: Fever GI: Reports: Nausea, Vomiting, Denies: Abdominal pain Female: Reports: Hematuria, Urination decreased Complete sys rev & neg: except as marked. Skin: Denies Itching, Denies Rash Physical Exam Vital Signs Vital Signs (First) Date Time Temp Pulse Resp B/P Pulse Ox O2 Delivery O2 Flow Rate FiO2 10/23/16 08:11 86 20 159/79 100 Initial VS: Reviewed Skin: Warm, Dry, No cyanosis Neurologic: Alert, Oriented, Nonfocal Psychiatric: Mood/affect normal, Behavior normal, Normal thought content General/Constitutional: Awake, Alert, Cooperative, Not toxic appearing Respiratory / Chest: Atraumatic, Breath sounds NL, Breath sounds = bilat, No respiratory distress Cardiovascular: Heart rate NL, Regular rhythm, Heart sounds NL, No murmurs Abdomen: Atraumatic, Soft, Non-tender, No guarding, No rebound Back: Atraumatic, Full range of motion 1 cm well healing incision L flank with [address] No fluctuance, discharge, or erythema 1x1 firm area around the incision with surrounding contusions Head / Eyes: Atraumatic, Normocephalic, PERRL, EOMI Female Genitourinary: Exam deferred Martinez catheter in place draining bloody urine Interpretation & Diagnostics Lab Results Interpretation Test 10/23/16 09:22 Urine Color Bloody (YELLOW) Urine Appearance Turbid (CLEAR,HAZY) Urine pH 6.5 (5.0-8.0) Urine Specific [place] 1.020 (1.003-1.035) Urine Protein 100mg/dL (NEG,TRACE) Urine Glucose (UA) Negativemg/dL (NEGATIVE) Urine Ketones Tracemg/dL (NEGATIVE) Urine Occult Blood Large (NEGATIVE) Urine Nitrite Negative (NEGATIVE) Urine Bilirubin Negative (NEGATIVE) Urine Urobilinogen Normalmg/dL (NORMAL) Urine Leukocyte Esterase Negative (NEGATIVE) Urine RBC Packed/hpf (0-2) Urine WBC 0-5/hpf (0-5) Urine Epithelial Cells None/hpf (NONE-MOD) Urine Crystals None seen (NONE SEEN) Urine Bacteria None/hpf (NONE-FEW) Urine Hyaline Casts None/lpf (NONE) Urine Granular Casts None seen (NONE SEEN) Urine Waxy Casts None seen (NONE SEEN) Urine Red Blood Cell Casts None seen (NONE SEEN) Urine White Blood Cell Casts None seen (NONE SEEN) Urine Mucus None seen (None Seen) Urine Trichomonas None seen (NONE SEEN) Urine Yeast None (NONE SEEN) Urinalysis Comment None Urine Culture Reflexed Not indicated Re-Eval/Medical Decision Med Decision/Clinical Course 61-year-old female six days status post left nephrostolithotomy p/w inability to void since last night. She reports she started having bloody urine with clots last night. Today with inability to void. She had a Martinez placed in the ER with post with residual was 0, pre-martinez was 300. Urine is negative for infection. I discussed with urology who recommended discharge home with Martinez catheter in place for follow-up with them in 2 days. Return precautions given if any inability to void, sign symptoms infection, any other new or worsening symptoms. Source of Hx: Old records Re-Evaluation/Progress : Time of Eval: 10:13 Patient Status: Condition improved Re-Evaluation/Progress Note: Patient rechecked. Discussed plan for discharge. Patient understands and agrees with plan. F/U instructions and RTER warnings given. All questions addressed at this time. Consultation : Referral / Consult Name: Candi Su MD Consulted With: Urology Call Returned at: 09:52 Candy Puller: Will see in office, Agrees with eval, Agrees with plan Note: Consulted with urologist, Dr. Su. Dr. Su agrees with plan of a Martinez catheter and will see pt in her office on . Counseled Regarding: Diagnosis, Lab results, Need for follow-up, When/why to return to ED Discharge & Departure Primary Impression: Urinary retention Additional Impression: Hematuria Disposition: Home Discharge Condition All VS Reviewed: Yes Condition: Stable Patient Instructions: Martinez Catheter Placement and Care (ED) Additional Instructions: All labs and urine were normal and reassuring. Keep your Martinez catheter in place until you see urologist, Dr. Su. Your appointment is at 8:30 am on 10/25 and that is when they will remove the catheter. They will see you again for a re-check that day at 2:00 pm. Return to the emergency room if your catheter stops draining, you cannot urinate , or you experience abdominal pain, fever, or vomiting. Referrals: [facility] (PCP) Scribe Attestation Portions of this note were transcribed by Agata Willoughby and Hailey Joshi. I, Dr. Burrell, personally performed the history, physical exam and medical decision-making; I reviewed and confirmed the accuracy of the information in the transcribed note. copies to: [facility] Noe Burrell MD Oct 23, 2016 09:17 Agata Willoughby Oct 23, 2016 09:27 Lucy Joshi Oct 23, 2016 10:52
[2016-10-23 09:37] LABS: APPEARANCE,URINE TURBID (CLEAR,HAZY); COLOR,URINE BLOODY (YELLOW); PH,URINE 6.5 (5.0-8.0)
[2016-10-23 09:38] LABS: OCCULT BLOOD,URINE LARGE (NEGATIVE); UROBILINOGEN,URINE NORMAL (NORMAL)
[2016-10-23 10:20] VITALS: BP 150/76; PULSE 74; RESP 16; O2SAT 100
== END 2016-10-23 10:40 | disposition home or self-care (01) ==
LOC: SED 08:06
DX: R33.9 Retention of urine, unspecified (principal); R31.9 Hematuria, unspecified; I10 Essential (primary) hypertension; E11.9 Type 2 diabetes mellitus without complications; K21.9 Gastro-esophageal reflux disease without esophagitis; Z87.442 Personal history of urinary calculi; Z98.890 Other specified postprocedural states; Z86.19 Personal history of other infectious and parasitic diseases; Z79.84 Long term (current) use of oral hypoglycemic drugs; Z79.51 Long term (current) use of inhaled steroids

== ENCOUNTER 2016-11-12 06:13 | Inpatient (IN) | payer OTHER, MEDICAID ==
[2016-11-12] VITALS (17 sets, daily range): BP systolic 99–176; BP diastolic 63–95; PULSE 71–100; RESP 11–20; O2SAT 93–100
[~2016-11-12] VITALS: Ht 167.6 cm; Wt 77.5 kg
--- NOTE | 2016-11-12 06:35 | ED.REPORT ---
HPI-General Illness Date of Service Nov 12, 2016 ED Provider: Vipin Lafleur MD Patient is a 61 year old female with a hx of kidney stones s/p nephrostomy tube placement who presents to the ED via EMS complaining of L sided flank pain onset last night. She was seen at [facility] last night, a CT was taken, she was diagnosed with a 5 mm kidney stone, and discharged home according to her report. Patient is unable to tolerate pain so she presented here. She describes the pain as sharp, nonradiating, located in the L flank and it is relieved by prescription pain medications. She reports that this feels like when she has had kidney stones previously (most recently 3 weeks ago). Associated symptoms include fever and R leg pain - she describes the leg pain as a spasm that she has had with previous kidney stones as well. She denies any mechanism of injury or trauma to the leg. She denies bladder or bowel incontinence, urinary retention, hematuria, hematochezia, dysuria, vision changes, headache, constipation, diarrhea, vomiting, or any other symptoms. She was given 4 mg morphine en route so her pain is down to a 2/10. Patient is not on blood thinners and has not started taking abx yet. Nursing Notes Stated Complaint: FLANK PAIN Chief Complaint: Female Abdominal Pain Nursing Notes Reviewed: Yes Allergies: Coded Allergies: latex (Verified Allergy, Severe, HIVES, 11/12/16) Scheduled Bupropion ER (Wellbutrin SR) 100 Mg Tablet.er 300 MG PO DAILY Fluoxetine (Prozac) 20 Mg Cap 60 MG PO DAILY Gabapentin (Gabapentin) 300 Mg Capsule 900 MG PO TID Guanfacine ER (Guanfacine ER) 2 Mg Tab.er.24h 2 MG PO HS Lisinopril (Lisinopril) 20 Mg Tablet 10 MG PO DAILY Metformin (Glucophage) 1,000 Mg Tablet 1,000 MG PO BID Multivits-Min/FA/Lycopene/Lut (Centrum Silver Tablet) 1 Each Tablet 1 EACH PO DAILY Omeprazole (Omeprazole) 20 Mg Tablet.dr 20 MG PO BID Propranolol HCl (Propranolol HCl) 10 Mg Tablet 20 MG PO BID Scheduled PRN Albuterol HFA (Proair HFA) 8.5 Gm Hfa.aer.ad 2 PUFFS INHALATION Q4H PRN PRN For Severe Pain Promethazine (Promethazine) 25 Mg Tablet 25 MG PO Q6H PRN PRN For Nausea General Time Seen by MD: 06:32 Chief Complaint Other (Flank pain ) Hx Obtained From: Patient Arrived By: Ambulance Sudden in Onset?: Yes Onset Occurred: Yesterday Symptom Duration: Since onset Quality: Sharp Severity: Current: Pain level 2 out of 10 Severity: Maximum: Severe Associated with: Reports: Fever Pertinent Negative: Pt denies other symptoms Relieved by: Prescription meds Recent Healthcare: Recent doctor visit Similar Sx Previous: Yes Past Medical History Past Medical History L nephrolithotomy 10/17/16 GI bleed anxiety Hep C MRSA Reports: Diabetes mellitus, GERD, Hypertension Reports: Depression Past Surgical History L nephrolithotomy 10/17/16 nephrostomy tube placement Smoking History Former Smoker Social History Drug Use: In recovery Other Social History: Good social support Ambulatory Status Independent Review of Systems Full Review of Systems Constitutional: Reports: Fever Eyes: Denies: Blurred bilateral Ears / Nose / Throat: Denies: Sore throat Respiratory: Denies: Shortness of breath Cardiovascular: Denies: Chest pain GI: Denies: Constipation, Diarrhea, Hematochezia, Vomiting Female: Reports: Flank pain, Denies: Dysuria, Hematuria, Incontinence, Urination decreased Musculoskeletal: Reports: Extremity pain Hematologic: Denies Bruising Endocrine: Denies: Polyuria Skin: Denies Rash Allergy / Immune: Denies: Itching Neurologic: Denies: Bladder dysfunction, Bowel dysfunction, Headache, Vision change Psychiatric: Denies: Change mental status Complete sys rev & neg: except as marked. Physical Exam Nursing note and vitals reviewed. Febrile to 39.3 and hypertensive. Constitutional: Well-developed, well-nourished. Not diaphoretic. Head: Normocephalic and atraumatic. Mouth/Throat: Oropharynx is clear and moist. No oropharyngeal exudate. Eyes: EOM are normal. Pupils are equal, round, and reactive to light. Neck: Supple, no tracheal deviation. Cardiovascular: Normal rate, regular rhythm. Equal and intact distal pulses throughout. Pulmonary/Chest: Effort normal and breath sounds normal. No respiratory distress. Abdominal: Soft. No distension. There is no tenderness, rebound, or guarding. : L flank tenderness to palpation. Musculoskeletal: Range of motion grossly intact, moving all extremities. No edema appreciated. Extremities atraumatic. Neurological: AOx3. Grossly nonfocal exam. Strength and sensation intact and equal to bilateral upper and lower extremities. Skin: Warm and dry, no rashes or pallor appreciated. Psychiatric: Appropriate mood and affect. Behavior appears normal. Vital Signs Vital Signs Date Time Temp Pulse Resp B/P Pulse Ox O2 Delivery O2 Flow Rate FiO2 11/12/16 06:30 39.3 95 20 176/87 96 Room Air Initial VS: Reviewed Interpretation & Diagnostics CT KUB at [facility] 11/11/16 2330 Left kidney/Ureter: Moderately to severely obstructing 6x5x6 mm proximal to mid left ureteral stone. Additional tiny nonobstructing sone at the lower pole. Moderate perinephric and periureteral edema. Otherwise grossly unremarkable. Lab Results Interpretation Result Diagram: 11/12/16 0705 11/12/16 0705 Test 11/12/16 07:05 White Blood Count 9.7th/mm3 (3.8-10.1) Red Blood Count 3.19mil/mm3 (3.90-5.20) Hemoglobin 8.3g/dL (12.0-15.6) Hematocrit 26.8% (35.0-46.0) Mean Corpuscular Volume 84.0fL (81-100) Mean Corpuscular Hemoglobin 26.0pg (27.0-35.0) Mean Corpuscular Hemoglobin Concent 31.0% (32.0-37.0) Red Cell Distribution Width 14.5% (12.3-15.4) Platelet Count 159bil/L (150-400) Neutrophils (%) (Auto) 78.6% (40-74) Lymphocytes (%) (Auto) 9.8% (14-46) Monocytes (%) (Auto) 6.7% (4-12) Eosinophils (%) (Auto) 4.3% (0-5) Basophils (%) (Auto) 0.3% (0-3) Prothrombin Time 10.8sec (8.1-12.5) Prothromb Time International Ratio 1.01ratio Sodium Level 134mEq/L (134-144) Potassium Level 4.2mEq/L (3.5-5.2) Chloride Level 95mEq/L (97-108) Carbon Dioxide Level 21mmol/L (18-29) Blood Urea Nitrogen 23mg/dL (8-27) Creatinine 0.93mg/dL (0.57-1.00) Estimat Glomerular Filtration Rate 88mL/min (>59) Glucose Level 171mg/dL (60-99) Lactic Acid Level 2.9mmol/L (0.4-2.0) Calcium Level 8.9mg/dL (8.5-10.1) Magnesium Level 1.3mg/dL (1.6-2.6) Total Bilirubin 0.3mg/dL (0.0-1.2) Aspartate Amino Transf (AST/SGOT) 26U/L (0-50) Alanine Aminotransferase (ALT/SGPT) 17U/L (0-32) Alkaline Phosphatase 82U/L (25-165) Total Protein 7.2g/dL (6.4-8.4) Albumin 3.8g/dL (3.4-5.0) Lipase 63U/L (13-60) Re-Eval/Medical Decision Med Decision/Clinical Course In summary, 61-year-old female with a Located past urological history including recent left percutaneous nephrolithotomy, left ureteral stent removal, and left nephrostomy tube placement presenting to the ED for evaluation of fever and worsening left lower quadrant pain. She was diagnosed last night with a 5 mm stone at [place] in the left ureter with moderate to severe obstruction. Stone is 6 x 5 x 6 mm, with an additional tiny nonobstructing stone in the lower pole. There was also moderate perinephric and periureteral edema. Aside from the right leg pain she gets with her kidney stones, which does not seem to correlate well with her presentation, she is denying any other symptoms at this time. She denies dysuria or hematuria. Upon arrival here, she is febrile, mildly hypertensive, with a heart rate of 95. Laboratory studies notable for a lactic acid of 2.9, magnesium of 1.3, (repletion initiated in ED), hemoglobin of 8.3. No significant leukocytosis. Patient given multiple liters of IV fluids (on 3rd L now), started on broad-spectrum antibiotics with vancomycin and ceftriaxone for sepsis. Discussed with Dr. Samayoa of urology shortly after patient's arrival. After discussion with Dr. Samayoa, as per below, plan admission for further management and evaluation, likely to the OR this afternoon for stent placement. Discussed the plan with the patient, who is agreeable and has no further questions. Currently hemodynamically stable with IV fluids. Also discussed the case with Dr. Al, who will be admitting in the interim. Time of Eval: 08:00 Re-Evaluation/Progress Note: Discussed plan for admission. Patient understands and agrees with plan. All questions addressed at this time. Consultation #1: Referral / Consult Name: Carlos Samayoa MD Consulted With: Urology Call Returned at: 08:20 Note: Discussed pt's case. Keep pt NPO. Continue abx . Will take to OR later this morning. Consultation #2: Referral / Consult Name: Sharath Pillai MD Consulted With: Hospitalist Call Returned at: 09:14 Bobtail Driver: Will see patient, Agrees with eval, Agrees with plan, Accepts admit Note: Discussed pt's case. Accepts admit. Counseled Regarding: Diagnosis, Lab results, Need for admission Discharge & Departure Primary Impression: Ureteral stone Additional Impression: Sepsis Sepsis type: sepsis due to unspecified organism Qualified Code: A41.9 - Sepsis, unspecified organism Disposition: ADMITTED TO HOSPITAL Discharge Condition All VS Reviewed: Yes Condition: Stable [facility] Crit Care Except Billable Proc Time Spent: 30-74 minutes Services Performed: Patient management by me, Time spent at bedside, Reviewing test results, Reviewing imaging, Discussing patient care, Documentation in record Critical Care Notes: 45 minutes, 3+ L IV fluids and imminent risk of decline Scribe Attestation Portions of this note were transcribed by Boo Leon. I, Dr. Lafleur personally performed the history, physical exam and medical decision-making; I reviewed and confirmed the accuracy of the information in the transcribed note. Signed by: Vianey George, 11/12/16 copies to: [facility] Vipin Lafleur MD Nov 12, 2016 06:35 BOO LEON Nov 12, 2016 06:49
[2016-11-12] MEDS ORDERED: 0.9% Sodium Chloride 1,000 ML IV ONE (06:36)
[2016-11-12] MEDS ORDERED: Ketorolac 15 mg/mL Inj IVPUSH ONE (06:40)
[2016-11-12] MEDS ORDERED: Ondansetron 2 mg/mL 2 mL Inj IVPUSH PRN ×2 (06:40→12:55)
[2016-11-12] MEDS ORDERED: Vancomycin Dose per Pharmacist XX ONE (06:50)
[2016-11-12] MEDS ORDERED: Vancomycin Inj 1,500 MG in 0.9% Sodium Chloride 500 ML IV ONE (06:55)
[2016-11-12 07:17] LABS: BASOPHILS % (AUTO) 0.3 % (0-3); EOSINOPHILS % (AUTO) 4.3 % (0-5); MONOCYTES % (AUTO) 6.7 % (4-12); NEUTROPHILS % (AUTO) 78.6 % (40-74); Platelet Count 159 bil/L (150-400)
[2016-11-12 07:37] LABS: INR 1.01 ratio
[2016-11-12 07:46] LABS: Magnesium 1.3 mg/dL (1.6-2.6)
[2016-11-12] MEDS: Lactated Ringer's 1,000 ML IV SCH ×2 (08:30→09:45)
[2016-11-12] MEDS ORDERED: cefTRIAXone Inj 2,000 MG in Dextrose 5% Minibag Plus 50 ML IV ONE (08:35)
[2016-11-12] MEDS ORDERED: GUAN2TAB17 PO (09:06)
[2016-11-12] MEDS ORDERED: Ondansetron 2 mg/mL 2 mL Inj ONE (09:18)
[2016-11-12] MEDS ORDERED: MetoCLOpramide 5 mg/mL 2 mL Inj ONE (09:18)
[2016-11-12] MEDS ORDERED: Propofol 10,000 mCg/mL 20 mL Inj ONE (09:18)
[2016-11-12] MEDS ORDERED: Magnesium Sulf 2 Gm/50mL Water 2 GM in IV Premix 1 EACH IV ONE (09:50)
[2016-11-12] MEDS ORDERED: Alum-Mag Hydrox-Simeth 30 mL Suspension PO PRN (12:55)
[2016-11-12] MEDS ORDERED: cefTRIAXone Inj 2,000 MG in Dextrose 5% Minibag Plus 50 ML IV SCH (13:00)
[2016-11-12] MEDS ORDERED: Glucose 40% Oral Gel 15 Gm Tube PO PRN (13:00)
[2016-11-12] MEDS ORDERED: HYDROmorphone 0.5 mg/0.5 mL iSecure Syringe IVPUSH PRN (13:00)
[2016-11-12] MEDS ORDERED: Magnesium Sulf 2 Gm/50mL Water 2 GM in IV Premix 1 EACH IV STA (13:02)
[2016-11-12] MEDS ORDERED: GUAN2TAB PO (13:31)
[2016-11-12] MEDS: 0.9% Sodium Chloride 1,000 ML IV SCH (13:32)
--- NOTE | 2016-11-12 13:51 | HP ---
[address] [address] HISTORY AND PHYSICAL PATIENT: NARESH KHALIL : 1955 MR#: [id number] ADMIT: 11/12/2016 JOB ID: [id number] PRIMARY CARE PROVIDER: Dr. Husain, PCP, [facility]. UROLOGIST: Dr. De Los Santos. Patient admitted from ED, inpatient status, [facility] team. CHIEF COMPLAINT: Back and abdominal pain. HISTORY OF PRESENT ILLNESS: This is a 61-year-old female with a long history of kidney stones. More recently, she had two stones removed on the left, October 17. They used a cysto and percutaneously. She has been recovering from that. There was some leakage but that just stopped. Last night around 6 p.m. she started suddenly with left-sided colicky renal-type pain. Waxed and waned. Finally, she went to the ED in [facility]. Reportedly did a CAT scan which showed a new stone on the left side midway in that ureter with a little bit of hydro. They told her she had an infection, gave her IV antibiotics, and discharged her home. Plan was to see Urology in the morning, but by 4 in the morning, she had so much pain she came here to [facility] ED. Was given pain medicines and admitted to the hospital. Urology is aware. Patient is here in the hospital. They are planning on possible cysto. Am having nurses check on that. Patient feels a bit better now and she has had some pain medication, fluids, etc. Little nausea. No emesis. No diarrhea. Little discomfort in her abdomen. No chest pain, shortness of breath, cough, productive sputum. Complete review of systems obtained. All pertinent positive in HPI above. Rest of review of systems are negative. PAST MEDICAL HISTORY: 1. Long history of nephrolithiasis with stent and complications from same. 2. Type 2 diabetes. 3. Hypertension. 4. Hyperlipidemia. 5. Diabetic neuropathy. 6. Depression. 7. History of . MEDICINES: 1. Gabapentin 900 t.i.d. 2. Lisinopril 10 daily. 3. Prilosec 20 b.i.d. 4. Wellbutrin XR 300 daily. 5. Prozac 60 daily. 6. Albuterol 2 puffs q.4 p.r.n. shortness of breath. 7. Metformin 1000 b.i.d. 8. Tenex 2 mg q.p.m. 9. Propranolol 20 b.i.d. ALLERGIES: LATEX. SOCIAL HISTORY: Lives at home with her . No tobacco use, having quit five years ago. No alcohol or drug use. FAMILY HISTORY: Kidney stones in a brother and sister and gallstones in her mother. PHYSICAL EXAMINATION: 39.3 on arrival to the ED. Otherwise has been afebrile. Blood pressure 122/64, heart rate 90. Skin is warm and dry. Eyes: PERRLA. EOMs intact. Mouth shows adequate hydration. No JVD. Cardiac: Regular. No significant murmur. Lungs clear to A and P. A little bit of discomfort to abdominal palpation but otherwise soft and benign. Extremities: Showed no significant edema. Cranial nerves 2-12 are intact. No gross motor or sensory defects noted. DIAGNOSIS: 1. Acute urinary tract infection present on admission. Active. I am going to continue with ceftriaxone. Will get records from [facility] to see what organism they have isolated and what sensitivities are present. 2. Left kidney stone with obstruction, present on admission. Active. Nursing staff checking with Urology as patient tentatively was to go to the OR to have this removed. Will provide Dilaudid for pain and nausea medicines. 3. Type 2 diabetes. Present on admission. Stable. The patient has concurrent neuropathy. We are going to hold patient's metformin, provide correction insulin low dose and continue gabapentin. 4. Chronic anemia, present on admission. Stable. Etiology is unclear. Will monitor. 5. Depression, present on admission. Stable. Continue patient's Prozac and Wellbutrin. 6. Hypertension present on admission. Stable. Will continue patient's Tenex but hold the lisinopril until patient is more stable. 7. Gastroesophageal reflux disease, present on admission. Stable. Continue patient's Prilosec. 8. Asthma, present on admission. Stable. Continue patient's albuterol. CODE STATUS: FULL CODE. DISPOSITION: Primary care provider is Dr. Husain, [facility]. Urologist is Dr. De Los Santos. CC: Elton Husain MD, [facility]
[2016-11-12] MEDS ORDERED: Lactated Ringer's 1,000 ML IV ONE (14:30)
[2016-11-12] MEDS ORDERED: Lactated Ringer's 1,000 ML IV SCH (14:43)
[2016-11-12] MEDS ORDERED: Lactated Ringer's 500 ML IV PRN (14:43)
[2016-11-12] MEDS ORDERED: Phenylephrine 10,000 mCg/mL Inj IVPUSH PRN (14:45)
[2016-11-12] MEDS ORDERED: fentaNYL-PF 50 mCg/mL 2 mL Inj IVPUSH PRN (14:45)
[2016-11-12] MEDS ORDERED: EPHEDrine Sulfate 50 mg/mL Inj IVPUSH PRN (14:45)
[2016-11-12] MEDS ORDERED: Atropine 0.4 mg/mL Inj IVPUSH PRN (14:45)
[2016-11-12] MEDS ORDERED: Labetalol 5 mg/mL 20 mL Inj IV PRN (14:45)
--- NOTE | 2016-11-12 14:53 | PCM.HPANE ---
Patient Data Surgeon Admitting Provider:Sharath Pillai MD Attending Provider:Sharath Pillai MD Primary Care Physician:[facility] Other Provider: Reason for Visit Infected Ureteral Stent/Sepsis Ht/WT & BMI Height (Feet): 5 Height (Inches): 6 Weight (Kilograms): 74.09 Body Mass Index Allergies Coded Allergies: latex (Verified Allergy, Severe, HIVES, 11/12/16) Past Anesthesia History Anesthesia History: Denies:: Abnormal Airway, Anesthesia Reactions, Difficult Intubation, Fam Anesthesia Reaction, Fam Malignant Hypertherm, Malignant Hyperthermia Diabetes History Hx Diabetes?: Yes Type of Diabetes: Type II Glycemic Control: Oral Medication MRSA MRSA: Yes (10 yrs ago) Medications Reported Medications Guanfacine 2 Mg Tablet2 Mg PO HS 11/12/16 Propranolol HCl 10 Mg [id number] Mg PO BID 90 Days Ref 0 10/15/16 Promethazine 25 Mg Decnrg29 Mg PO Q6H PRN For Nausea Ref 0 10/15/16 Multivits-Min/FA/Lycopene/Lut (Centrum Silver Tablet)1 Each Tablet1 Each PO DAILY 10/15/16 Omeprazole 20 Mg Tablet.dr20 Mg PO BID Ref 0 10/11/16 Metformin (Glucophage)1,000 Mg Tablet1,000 Mg PO BID Ref 0 10/10/16 Bupropion ER (Wellbutrin SR)100 Mg Tablet.er300 Mg PO DAILY Ref 0 10/10/16 Albuterol HFA (Proair HFA)8.5 Gm Hfa.aer.ad2 Puffs INHALATION Q4H PRN For Severe Pain #1 INHALER 10/10/16 Lisinopril 20 Mg Urfcqn14 Mg PO DAILY 30 Days Ref 0 05/06/14 Fluoxetine (Prozac)20 Mg Cap60 Mg PO DAILY 30 Days Ref 0 05/06/14 Gabapentin 300 Mg Otdbpdr181 Mg PO TID 30 Days Ref 0 05/06/14 Discontinued Reported Medications Guanfacine ER 2 Mg Tab.er.24h2 Mg PO HS 11/12/16 Hydrocodone-Acetaminophen 5-325 mg 1 Each Tablet1 Tablet PO Q4H PRN For Pain Ref 0 10/15/16 Sucralfate Susp (Carafate Susp)1 Gm/10 Ml Oral.susp1 Gm PO QID Ref 0 10/11/16 Guanfacine 2 Mg Tablet2 Mg PO HS 09/19/16 History History of ENT Problems?: No HEENT History: Denies:: Abnormal Airway Cataracts Difficult Intubation Dysphagia Hearing Problem Sinus Problem TMJ Denture Type: Full- Upper Full- Lower Teeth Condition: Missing Teeth Hx of Heart Problems?: No Cardiovascular History: Positive for:: Hypertension Denies:: Abdominal Aortic Aneurism Atrial Fibrillation Cardiac Surgery Chest Pain Congestive Heart Failure Edema Heart Murmur Irregular Heartbeat Pacemaker Rheumatic Fever Thrombophlebitis Valvular Heart Disease Hx of Respiratory Problem?: Yes Respiratory History: Denies:: Asthma COPD Chest Surgery Cough Dyspnea Emphysema Hemoptysis Oxygen Administration Pneumonia Pulmonary Embolism Tuberculosis Use of C-PAP Machine Hx Neurologic Problems?: No Neurological History: Positive for:: Headaches Denies:: Alzheimer's Disease CVA Dementia Dizziness Multiple Sclerosis Parkinson's Disease Seizures Hx of GI Problems?: Yes Hx of Problems?: Yes Genitourinary History: Positive for:: Kidney Stones (LT KIDNEY/URETER CALCULOUS=CURRENT PROBLEM) Denies:: HX of Hemodialysis Urinary Tract Infection HX of Peritoneal Dialysis: No Female Hx: Denies:: Currently Endometriosis Pelvic Inflammatory Problems with Breasts? Skin History: Positive for:: History Skin Disorders? (RASHES) Denies:: Pressure Ulcers Hx Musculoskeletal Problems?: No Musculoskeletal History: Denies:: Back Injury Degenerative Joint Joint Replacement Musculoskeletal Trauma Systemic Lupus Hx of Psycho/Social Problems?: Yes Psycho Social History: Positive for:: Anxiety Hx Depression Denies:: Bipolar Disorder Suicide Attempt Hx Surgeries?: Yes (Kidney stone with stent) Hx Any Other Health Problems?: Yes Other History: Positive for:: Hospitalization (Kidney stones) Denies:: Cancer Endocrine Disease Thyroid Disease History Blood Transfusions: Positive for:: Accept Blood Products? Denies:: Blood Transfuse Reaction Blood Transfusions Hx Diabetes: Yes Hx Alcohol Use: NoHx Substance Use: Yes (DISTANT HISTORY OF) Smoking Status: Former Smoker Have You Smoked inLast 12 mo: No Stop/Bang Treated for Sleep Apnea?: No Do You Have a CPAP Machine?: No S-Snoring: Do You Snore Loudly: No T-Tired: feel tired, fatigued: Yes O-Obsered: Observed not breath: No P-Blood Pressure: treated: Yes B- Body Mass Index > 35 kg/m2: No A- Age over 50: Yes N- Neck Large Circumference: No G- Gender Male: No LAURA Total Score: 2 Risk Assessment Category Category 1A: Patient has history of documented sleep apnea, and HAS NOT received any narcotic, sedative or anesthesia administration during this stay. Category 1B: Patient has history of documented sleep apnea, and HAS received any narcotic , sedative or anesthesia administration during this stay Category 2: Patient has SUSPECTED Obstructive Sleep Apnea, and HAS received any narcotic , sedative or anesthesia administration during this stay. Category 3: Patient has SUSPECTED Obstructive Sleep Apnea and HAS NOT received narcotic, sedative or anesthesia administration during this stay. Category 4: Outpatient in Procedural Areas with known sleep apnea or who screen positive for High Risk via the STOP/BANG questionnaire. Exam Exam Vital Signs Vital Signs Date Time Temp Pulse Resp B/P Pulse Ox O2 Delivery O2 Flow Rate FiO2 11/12/16 06:30 39.3 95 20 176/87 96 Room Air General Appearance: Alert, Cooperative, Mild Distress, Other (somnolent and febrile prior to starting surgery) HEENT/AIRWAY: MP 2, Neck Movement (FROM), Mouth Opening Lungs: Normal Air Movement Heart: Regular Rate/Rhythm Meds/Labs/Diagnostics Admission Meds Current Medications Sodium Chloride (Normal Saline) 1,000 ml @ 0 mls/hr Q0M ONCE IV Last administered on 11/12/16 07:50; Start 11/12/16 at 06:36; Stop 11/12/16 at 06:37; Status DC Ketorolac Tromethamine 15 mg 15 mg ONCE ONCE IVPUSH Last administered on 07:40; Start 11/12/16 at 06:40; Stop 11/12/16 at 06:41; Status DC Lactated Ringer's 1,000 ml @ 2,000 mls/hr Q30M IV Last administered on 09:45; Start 11/12/16 at 06:49 Vancomycin HCl/ Sodium Chloride (Vancocin Inj/ Normal Saline) 500 ml @ 333.333 mls/hr ONCE ONCE IV Last administered on 11/12/16 07:55; Start 11/12/16 at 06: 55; Stop 11/12/16 at 08:24; Status DC Labs Test 11/12/16 07:05 White Blood Count 9.7th/mm3 (3.8-10.1) Red Blood Count 3.19mil/mm3 (3.90-5.20) Hemoglobin 8.3g/dL (12.0-15.6) Hematocrit 26.8% (35.0-46.0) Mean Corpuscular Volume 84.0fL (81-100) Mean Corpuscular Hemoglobin 26.0pg (27.0-35.0) Mean Corpuscular Hemoglobin Concent 31.0% (32.0-37.0) Red Cell Distribution Width 14.5% (12.3-15.4) Platelet Count 159bil/L (150-400) Neutrophils (%) (Auto) 78.6% (40-74) Lymphocytes (%) (Auto) 9.8% (14-46) Monocytes (%) (Auto) 6.7% (4-12) Eosinophils (%) (Auto) 4.3% (0-5) Basophils (%) (Auto) 0.3% (0-3) Prothrombin Time 10.8sec (8.1-12.5) Prothromb Time International Ratio 1.01ratio Sodium Level 134mEq/L (134-144) Potassium Level 4.2mEq/L (3.5-5.2) Chloride Level 95mEq/L (97-108) Carbon Dioxide Level 21mmol/L (18-29) Blood Urea Nitrogen 23mg/dL (8-27) Creatinine 0.93mg/dL (0.57-1.00) Estimat Glomerular Filtration Rate 88mL/min (>59) Glucose Level 171mg/dL (60-99) Lactic Acid Level 2.9mmol/L (0.4-2.0) Calcium Level 8.9mg/dL (8.5-10.1) Magnesium Level 1.3mg/dL (1.6-2.6) Total Bilirubin 0.3mg/dL (0.0-1.2) Aspartate Amino Transf (AST/SGOT) 26U/L (0-50) Alanine Aminotransferase (ALT/SGPT) 17U/L (0-32) Alkaline Phosphatase 82U/L (25-165) Total Protein 7.2g/dL (6.4-8.4) Albumin 3.8g/dL (3.4-5.0) Lipase 63U/L (13-60) Plan Impression Patient chart reviewed, patient interviewed and anesthestic plan with risks, benefits, and alternatives discussed, and informed consent obtained. NPO per Anesth. Guidelines: Yes ASA Physical Status: ASA2 Plus Emergency Anesthetic Plan: GA Bene/Risks/Altern/Consents: Yes HP Complete Prior to Induction: Yes Elton Flores MD Nov 12, 2016 11:24
[2016-11-12] MEDS ORDERED: Belladonna Alk-Opium 60 mg Rectal Suppository RECTAL ONE ×2 (15:08→15:11)
--- NOTE | 2016-11-12 15:30 | PCM.SURGPO ---
Immediate Operative Note Date of Surgery: Nov 12, 2016 Pre Operative Diagnosis L ureteral calculus, L hydronephrosis, sepsis Post Operative Diagnosis L ureteral calculus, L hydronephrosis, sepsis Procedure Cystoscopy and L ureteral stent placement Surgeon and Hide Paster Surgeon: Carlos Samayoa MD Assistants: None Findings Cystoscopy revealed no bladder calculi or tumors. Mildly cloudy urine was drained from L renal pelvis. Moderate L hydronephrosis was seen. L ureteral stent was placed. Complications There were no periprocedural complications identified. Surgical Specimen Removed: Yes Specimen sent to Pathology: No Surgical Specimen description: Urine Cx from L kidney sent to micro lab Anesthetic Administered: GA Grafts, Implants: Other (26cm x 6F L ureteral JJ stent (no string)) Output, Estimated Blood Loss: <5 Blood Admin during surgery: No Additional information Patient to be transferred to [facility] when stable under care of hospitalist Dr. Pillai. Recommend continuing broad-spectrum IV Abx and IVF hydration, starting Flomax, and straining urine. Carlos Samayoa MD Nov 12, 2016 15:30
--- NOTE | 2016-11-12 15:35 | PCM.ANEP1 ---
Post Anesthesia PACU Phase 1 Assessment Vital Signs Vital Signs Date Time Temp Pulse Resp B/P Pulse Ox O2 Delivery O2 Flow Rate FiO2 11/12/16 14:05 39.0 100 170/89 93 Room Air 11/12/16 12:38 91 11/12/16 11:54 37.1 89 20 150/75 96 Room Air 11/12/16 11:00 91 16 126/95 97 Room Air 11/12/16 10:30 90 16 136/63 96 Room Air 11/12/16 10:00 89 16 124/74 95 Room Air 11/12/16 09:30 91 16 121/65 95 Room Air 11/12/16 09:00 91 16 122/64 96 Room Air Anesthetic Administered: GA Level of Alertness: Awake, talking DERAS's with Equal Strength: Yes Pain: No Pain Scale Score: 3 Nausea or Vomiting: No CV Function & Hydration Stable: Yes Airway Device: n/a Oxygen Delivery: Room Air Lungs: Normal Air Movement Dermatome Level: Full Sensation PACU Phase 2 Assessment Complications: No Follow up Care: N/A Patient Instructions Provided: N/A Elton Flores MD Nov 12, 2016 15:35
[2016-11-12] MEDS ORDERED: Phenazopyridine 97.5 mg Tablet PO PRN (15:45)
[2016-11-12] MEDS ORDERED: HYDROcodone-APAP 10-325 mg PO PRN (15:45)
[2016-11-12] MEDS ORDERED: Albuterol 2.5 mg/3 mL Inhalation Solution NEB PRN (16:00)
--- NOTE | 2016-11-12 16:02 | CONS ---
[address] [address] CONSULTATION REPORT PATIENT: NARESH KHALIL : 1955 MR#: [id number] ADMIT: 11/12/2016 JOB ID: [id number] DATE OF SERVICE: 11/12/2016 CHIEF COMPLAINT: Left flank pain, fever, left ureteral calculus, left hydronephrosis, sepsis. HISTORY OF PRESENT ILLNESS: I was asked by ED, Dr. Vipin Lafleur, to evaluate this 61-year-old female for left flank pain, fever, sepsis, left ureteral calculus and left hydronephrosis. The patient is followed by Dr. Candi Su and Dr. Velia De Los Santos. Patient is status post left percutaneous nephrostolithotomy by Dr. Su on October 17, 2016. The patient was last seen by Dr. Su in the office on October 30, 2016, and was doing well. The patient developed left flank pain and went to the [facility] emergency department last night and had a CT scan of abdomen and pelvis noncontrast last night showing a 6 mm left proximal to mid ureteral calculus, left hydronephrosis and a nonobstructing tiny left lower pole renal calculus. The patient was discharged home and the patient presented to the [facility] emergency department this morning with left flank pain and fever. The patient had a fever of 39.3 degrees Celsius at 6:30 a.m. today in the emergency department. The patient recently completed a course of antibiotics for UTI. The patient presently reports left flank pain, fever. No nausea, no vomiting. No dysuria, no difficulty voiding. The patient reports fatigue and malaise. The patient was noted to have elevated lactate of 2.9 in the emergency department. The patient was given IV fluid resuscitation and broad-spectrum IV antibiotics with vancomycin IV and ceftriaxone IV in the emergency department, and patient was admitted by hospitalist, Dr. Timothy Pillai, hospitalist. PAST MEDICAL/SURGICAL HISTORY: Nephrolithiasis, diabetes mellitus, hypertension, hyperlipidemia, diabetic neuropathy. Depression. History of . History of left percutaneous nephrostolithotomy on October 17, 2016 as per HPI. Also history of GI bleed, anxiety, hepatitis C, GERD, hypertension. PRESENT HOSPITAL MEDICATIONS: Wellbutrin, Prozac, Tenex, Protonix, Inderal, insulin, albuterol p.r.n., Neurontin, Phenergan p.r.n., Dilaudid p.r.n., ceftriaxone, Ativan p.r.n., Maalox p.r.n., Zofran p.r.n., Senokot p.r.n., MiraLAX p.r.n., Tylenol p.r.n. ALLERGIES: Allergies to LATEX. SOCIAL HISTORY: Patient lives at home with her . No tobacco use. Quit smoking in the past. No alcohol or drug use presently. FAMILY HISTORY: Noncontributory. REVIEW OF SYSTEMS: Constitutional: Positive for fever. GI: No nausea, no vomiting. PHYSICAL EXAMINATION: Vital signs: Fever of 39.3 degrees Celsius at 6:30 a.m. today. Temperature 37.1 degrees, then with another fever of 39.0 degrees Celsius presently. Heart rate 100, BP 170/89. O2 sat 93% on room air. General: Well-developed, well-nourished female in no acute distress. HEENT exam: Head normocephalic, atraumatic. Eyes: Extraocular muscles intact. Neck supple. Chest: No use of accessory muscles. Nonlabored respirations. No retractions. Abdomen: Soft, nondistended, nontender. No palpable masses. No rebound, no guarding. Skin: Warm and dry. Neurologic examination: Sensation grossly intact to touch. Normal speech. Psych exam: Alert and oriented x3. Normal mood and affect. Back positive for mild left costovertebral angle tenderness. LABORATORIES: This morning white blood cell count 9.7, hematocrit 26.8, platelets 159. Sodium 134, potassium 4.2, chloride 95, CO2 21, BUN 23. Creatinine 0.93. Glucose 171. Lactic acid 2.9. Microbiology, blood cultures pending. IMAGING: CT scan as per HPI. ASSESSMENT: A 6 mm left ureteral calculus with left hydronephrosis. Also a tiny nonobstructing left lower pole renal calculus with fever and with lactic acidosis, and with left flank pain and fever and sepsis. Risks, benefits and alternatives of surgery, specifically cystoscopy and left ureteral stent placement, were discussed with the patient. All questions were answered. The patient wishes to have surgery as recommended. PLAN: Plan is for surgery, specifically cystoscopy and left ureteral stent placement, today. Recommend continuing broad-spectrum IV antibiotics. Recommend continuing IV fluid resuscitation. The patient has been n.p.o. Recommend following laboratories, including white blood cell count, creatinine, electrolytes and lactic acid. Recommend continuing pain medications p.r.n. Case was discussed with ED, Dr. Lafleur, earlier today.
[2016-11-12 16:15] LABS: APPEARANCE,URINE CLOUDY (CLEAR,HAZY); COLOR,URINE STRAW (YELLOW); OCCULT BLOOD,URINE LARGE (NEGATIVE); PH,URINE 6.5 (5.0-8.0); UROBILINOGEN,URINE NORMAL (NORMAL)
[2016-11-12] MEDS: Insulin LISPRO 300 Unit/3 mL Inj SUBQ SCH ×2 (17:30→20:24)
[2016-11-12] MEDS: Pantoprazole 20 mg ER24 Tablet PO SCH (20:24)
[2016-11-12] MEDS ORDERED: guanFACINE 2 mg Tablet PO SCH ×2 (21:00)
--- NOTE | 2016-11-12 21:32 | DRSVH ---
PROCEDURE: X-RAY RETROGRADE UROGRAPHY INDICATIONS: C-ARM ASSISTED LEFT STENT PLACEMENT TECHNIQUE: 3 intra-operative images acquired by the Urology service. COMPARISON: Outside Film, CT, CT ABD PELVIS WO CON, 11/11/2016, 23:21. FINDINGS: 3 intraoperative fluoroscopic views demonstrate placement of a left ureteral stent with the proximal coil in the pelvis and the distal coil in the region of the bladder. There is dilatation of the opac ified left renal system. IMPRESSION: 1. Fluoroscopy provided for left ureteral stent placement. Dictated by: Juan Mann M.D. on 11/12/2016 at 21:29 Approved by: Juan Mann M.D. on 11/12/2016 at 21:31
[2016-11-13] VITALS (11 sets, daily range): BP systolic 111–154; BP diastolic 64–76; PULSE 55–99; RESP 18–26; O2SAT 92–100
[2016-11-13] MEDS: 0.9% Sodium Chloride 1,000 ML IV SCH ×3 (00:55→21:57)
[2016-11-13] MEDS ORDERED: Albuterol-Ipratropium 3 mL Inhalation Solution ONE (07:16)
[2016-11-13] MEDS ORDERED: MethylprednisoLONE Sodium Succinate 62.5 mg/mL 2 mL Inj IVPUSH ONE (07:25)
[2016-11-13] MEDS ORDERED: Ketorolac 15 mg/mL Inj IVPUSH PRN (07:30)
[2016-11-13 07:58] LABS: BASOPHILS % (AUTO) 0.8 % (0-3); EOSINOPHILS % (AUTO) 7.5 % (0-5); MONOCYTES % (AUTO) 9.4 % (4-12); Mean Corpuscular Hemoglobin 25.8 pg (27.0-35.0); Mean Corpuscular Volume 84.2 fL (81-100); NEUTROPHILS % (AUTO) 71.4 % (40-74); Platelet Count 160 bil/L (150-400)
--- NOTE | 2016-11-13 08:07 | DRSVH ---
PROCEDURE: X-RAY CHEST ONE VIEW, PORTABLE ([id number]) INDICATIONS: shortness of breath TECHNIQUE: One view of the chest was acquired. COMPARISON: 10/09/2016 FINDINGS: Surgical changes and devices: None. Lungs and pleura: No pleural effusions or pneumothorax. Lungs show diminished inspiration with mild , diffusely accentuated interstitial markings, no focal consolidation. Mediastinum: Mediastinal contours appear normal. Heart size is normal. Bones and chest wall: No suspicious bony lesions. Overlying soft tissues appear unremarkable. IMPRESSION: Low volume exam accentuating interstitial markings. Possibility of viral or atypical pneu monia cannot be excluded. Dictated by: Vance John M.D. on 11/13/2016 at 8:04 Approved by: Vance John M.D. on 11/13/2016 at 8:05
[2016-11-13] MEDS ORDERED: Non-Formulary Medication (Multivits-Min/FA/Lycopene/Lut (Centrum Silver Tablet) 1 EACH) PO SCH (08:30)
[2016-11-13] MEDS: Pantoprazole 20 mg ER24 Tablet PO SCH ×2 (09:05→20:11)
[2016-11-13] MEDS: Polyethylene Glycol (PEG) 17 Gm Powder PO PRN (09:07)
[2016-11-13] MEDS: Cefepime Inj 2,000 MG in Dextrose 5% Minibag Plus 100 ML IV SCH ×2 (09:10→17:11)
[2016-11-13] MEDS: Insulin LISPRO 300 Unit/3 mL Inj SUBQ SCH ×3 (09:13→17:14)
[2016-11-13] MEDS: buPROPion SR 100 mg ER12 Tablet PO SCH (09:14)
[2016-11-13] MEDS: MethylprednisoLONE Sodium Succinate 40 mg/mL Inj IVPUSH SCH (15:43)
[2016-11-13] MEDS ORDERED: HYDROcodone-APAP 5-325 mg Tablet PO PRN (15:55)
--- NOTE | 2016-11-13 16:49 | PCM.PNMED ---
Subjective Date of Service Nov 13, 2016 Subjective Patient earlier this morning was having significant wheezing which was improved with IV Solu-Medrol along with duo nebs every 4 hours and albuterol when necessary. Feels fatigued as later this afternoon. Exam Vital Signs Vital Sign - Last Date Time Temp Pulse Resp B/P Pulse Ox O2 Delivery O2 Flow Rate FiO2 11/13/16 14:12 37.0 76 20 111/66 97 Room Air 11/13/16 07:09 8.00 Intake and Output 11/12/16 11/12/16 11/13/16 Cumulative From/Thru 15:00 23:00 07:00 11/12/16 06:30 - 11/12/16 17:44 Intake Total 3632 ml 320 ml 3952 ml Output Total 5 ml 5 ml Balance 3632 ml 315 ml 3947 ml IV Total 3632 ml 320 ml 3952 ml Estimated Blood Loss 5 ml 5 ml Exam Constitutional: Middle-aged female in no acute distress Head: Normocephalic/atraumatic Chest is decreased breath sounds at her bases currently Cor: Regular rate and rhythm S1-S2 Abdomen: Soft nontender bowel sounds present Extremities: No pedal edema Psych: Slightly anxious Skin: No rashes Neuro: Alert and oriented 3, motor strength is intact bilaterally IVs and Medications Medications Reviewed: Medications were reviewed in detail Lab and Diagnostics Laboratory Tests 72 Hours Test 11/12/16 07:05 11/12/16 15:48 11/12/16 18:09 11/13/16 07:33 White Blood Count 9.7th/mm3 (3.8-10.1) Red Blood Count 3.19mil/mm3 (3.90-5.20) Hemoglobin 8.3g/dL (12.0-15.6) Hematocrit 26.8% (35.0-46.0) Mean Corpuscular Volume 84.0fL (81-100) Mean Corpuscular Hemoglobin 26.0pg (27.0-35.0) Mean Corpuscular Hemoglobin Concent 31.0% (32.0-37.0) Red Cell Distribution Width 14.5% (12.3-15.4) Platelet Count 159bil/L (150-400) Neutrophils (%) (Auto) 78.6% (40-74) Lymphocytes (%) (Auto) 9.8% (14-46) Monocytes (%) (Auto) 6.7% (4-12) Eosinophils (%) (Auto) 4.3% (0-5) Basophils (%) (Auto) 0.3% (0-3) Prothrombin Time 10.8sec (8.1-12.5) Prothromb Time International Ratio 1.01ratio Sodium Level 134mEq/L (134-144) Potassium Level 4.2mEq/L (3.5-5.2) Chloride Level 95mEq/L (97-108) Carbon Dioxide Level 21mmol/L (18-29) Blood Urea Nitrogen 23mg/dL (8-27) Creatinine 0.93mg/dL (0.57-1.00) Estimat Glomerular Filtration Rate 88mL/min (>59) Glucose Level 171mg/dL (60-99) Lactic Acid Level 2.9mmol/L (0.4-2.0) 1.4mmol/L (0.4-2.0) 2.1mmol/L (0.4-2.0) Calcium Level 8.9mg/dL (8.5-10.1) Magnesium Level 1.3mg/dL (1.6-2.6) Total Bilirubin 0.3mg/dL (0.0-1.2) Aspartate Amino Transf (AST/SGOT) 26U/L (0-50) Alanine Aminotransferase (ALT/SGPT) 17U/L (0-32) Alkaline Phosphatase 82U/L (25-165) Total Protein 7.2g/dL (6.4-8.4) Albumin 3.8g/dL (3.4-5.0) Lipase 63U/L (13-60) Urine Color Straw (YELLOW) Urine Appearance Cloudy (CLEAR,HAZY) Urine pH 6.5 (5.0-8.0) Urine Specific [place] 1.005 (1.003-1.035) Urine Protein 30mg/dL (NEG,TRACE) Urine Glucose (UA) Negativemg/dL (NEGATIVE) Urine Ketones Negativemg/dL (NEGATIVE) Urine Occult Blood Large (NEGATIVE) Urine Nitrite Negative (NEGATIVE) Urine Bilirubin Negative (NEGATIVE) Urine Urobilinogen Normalmg/dL (NORMAL) Urine Leukocyte Esterase Moderate (NEGATIVE) Urine RBC >50/hpf (0-2) Urine WBC 11-50/hpf (0-5) Urine Epithelial Cells Occasional/hpf (NONE-MOD) Urine Crystals None seen (NONE SEEN) Urine Bacteria Few/hpf (NONE-FEW) Urine Hyaline Casts None/lpf (NONE) Urine Granular Casts None seen (NONE SEEN) Urine Waxy Casts None seen (NONE SEEN) Urine Red Blood Cell Casts None seen (NONE SEEN) Urine White Blood Cell Casts None seen (NONE SEEN) Urine Mucus None seen (None Seen) Urine Trichomonas None seen (NONE SEEN) Urine Yeast None (NONE SEEN) Urinalysis Comment None Urine Culture Reflexed Indicated Test 11/13/16 07:39 White Blood Count 9.2th/mm3 (3.8-10.1) Red Blood Count 2.79mil/mm3 (3.90-5.20) Hemoglobin 7.2g/dL (12.0-15.6) Hematocrit 23.5% (35.0-46.0) Mean Corpuscular Volume 84.2fL (81-100) Mean Corpuscular Hemoglobin 25.8pg (27.0-35.0) Mean Corpuscular Hemoglobin Concent 30.6% (32.0-37.0) Red Cell Distribution Width 14.9% (12.3-15.4) Platelet Count 160bil/L (150-400) Neutrophils (%) (Auto) 71.4% (40-74) Lymphocytes (%) (Auto) 9.4% (14-46) Monocytes (%) (Auto) 9.4% (4-12) Eosinophils (%) (Auto) 7.5% (0-5) Basophils (%) (Auto) 0.8% (0-3) Hematology Comments Rbc Sodium Level 132mEq/L (134-144) Potassium Level 4.2mEq/L (3.5-5.2) Chloride Level 100mEq/L (97-108) Carbon Dioxide Level 16mmol/L (18-29) Blood Urea Nitrogen 18mg/dL (8-27) Creatinine 0.86mg/dL (0.57-1.00) Estimat Glomerular Filtration Rate 96mL/min (>59) Glucose Level 188mg/dL (60-99) Calcium Level 8.1mg/dL (8.5-10.1) Procalcitonin 0.69ng/mL (0.00-0.08) Result Diagram: 11/13/16 0739 11/13/1639 Microbiology RUN DATE: 11/13/16 [facility] LIVE PAGE 1 RUN TIME: 648 Specimen Inquiry PHYSICIAN Name: SIMRANNARESH Age/Sex: 61/F Attend Dr: Evie Castano MD Acct: [id number] Unit: [id number] Status: ADM IN Location: [facility] [place] 3023-1 Re11/12/16 Disch: Specimen: [id number] Collected: 11/12/16 Status: RES Req#: [id number] Received: 11/12/16 Source: URINE,KID Sp Desc : PP Rose Dr: Carlos Samayoa MD Ordered: URINE CULT Procedure Result Verified Site Microbiology JANINE CULT URINE Preliminary 11/13/16-49 No growth to date X-Rays, CTs and MRIs Patient Name: NARESH KHALIL MR#: [id number] Location: [facility] [place] Ordering Phys: Evie Castano MD Date of Service: 11/13/16721 PROCEDURE: X-RAY CHEST ONE VIEW, PORTABLE ([id number]) INDICATIONS: shortness of breath TECHNIQUE: One view of the chest was acquired. COMPARISON: 10/09/2016 FINDINGS: Surgical changes and devices: None. Lungs and pleura: No pleural effusions or pneumothorax. Lungs show diminished inspiration with mild, diffusely accentuated interstitial markings, no focal consolidation. Mediastinum: Mediastinal contours appear normal. Heart size is normal. Bones and chest wall: No suspicious bony lesions. Overlying soft tissues appear unremarkable. IMPRESSION: Low volume exam accentuating interstitial markings. Possibility of viral or atypical pneumonia cannot be excluded. Dictated by: Vance John M.D. on 11/13/2016 at 8:04 Approved by: Vance John M.D. on 11/13/2016 at 8:05 PROCEDURE: X-RAY RETROGRADE UROGRAPHY INDICATIONS: C-ARM ASSISTED LEFT STENT PLACEMENT TECHNIQUE: 3 intra-operative images acquired by the Urology service. COMPARISON: Outside Film, CT, CT ABD PELVIS WO CON, 11/11/2016, 23:21. FINDINGS: 3 intraoperative fluoroscopic views demonstrate placement of a left ureteral stent with the proximal coil in the pelvis and the distal coil in the region of the bladder. There is dilatation of the opacified left renal system. IMPRESSION: 1. Fluoroscopy provided for left ureteral stent placement. Dictated by: Juan Mann M.D. on 11/12/2016 at 21:29 Approved by: Juan Mann M.D. on 11/12/2016 at 21:31 Additional Diagnostics Immediate Operative Note Date of Surgery: Nov 12, 2016 Pre Operative Diagnosis L ureteral calculus, L hydronephrosis, sepsis Post Operative Diagnosis L ureteral calculus, L hydronephrosis, sepsis Procedure Cystoscopy and L ureteral stent placement Surgeon and Rail Signal Mechanic Surgeon: Carlos Samayoa MD Assistants: None Findings Cystoscopy revealed no bladder calculi or tumors. Mildly cloudy urine was drained from L renal pelvis. Moderate L hydronephrosis was seen. L ureteral stent was placed. Complications There were no periprocedural complications identified. Surgical Specimen Removed: Yes Specimen sent to Pathology: No Surgical Specimen description: Urine Cx from L kidney sent to micro lab Anesthetic Administered: GA Grafts, Implants: Other (26cm x 6F L ureteral JJ stent (no string)) Output, Estimated Blood Loss: <5 Blood Admin during surgery: No Additional information Patient to be transferred to [facility] when stable under care of hospitalist Dr. Pillai. Recommend continuing broad-spectrum IV Abx and IVF hydration, starting Flomax, and straining urine. Carlos Samayoa MD Nov 12, 2016 15:30 <Electronically signed by Carlos Samayoa MD> 11/12/16 1542 Assessment & Plan # Acute UTI with sepsis, present on admission -I switched from IV ceftriaxone to broader coverage with IV cefepime 2 g every 8 hours -So far urine culture has not grown anything -The patient had a CT scan after developing left flank pain and went [facility] emergency room had a scan which showed noncontrast 6 mm left proximal to mid ureteral calculus with left hydronephrosis and a nonobstructing tiny left lower pole renal calculus. -See urology note postoperatively had left ureteral stent placed via cystoscopy and no stones were seen # Acute COPD exacerbation, not present on admission -Responded to IV Solu-Medrol, duo nebs every 4 hours and albuterol nebs when necessary -Morning chest x-ray revealed decreased lung volume but no other acute abnormalities # Type 2 diabetes, chronic, present on admission -Hold metformin and continue with correction dose insulin scale # Depression, chronic, present on admission -Stable on current medications which we will continue #Hypertension, chronic, present on admission -Continue with Tenex lisinopril and monitor #GERD, chronic, present on admission -Continue patient's home Prilosec #DVT prophylaxis -SCDs and subcutaneous prophylactic heparin #CODE STATUS -Full code Pain Evaluation: Adequate Pain Control VTE Prophylaxis: Sub-Q Heparin (Unfractionated) VTE Mechanical Devices: Intermittant Pneumatic CD Resuscitation Status: CPR: Attempt Resuscitation Time spent 30 minutes Evie Castano MD Nov 13, 2016 16:49 Evie Castano MD Nov 13, 2016 16:49
[2016-11-13] MEDS: Heparin 5,000 Unit/mL Inj SUBQ SCH (17:05)
[2016-11-13] MEDS: Lactobacillus Rhamnosus 10 Bil Unit Capsule PO SCH (20:11)
[2016-11-14] VITALS (10 sets, daily range): BP systolic 164–194; BP diastolic 73–95; PULSE 69–92; RESP 18–24; O2SAT 95–99
[2016-11-14] MEDS: Insulin LISPRO 300 Unit/3 mL Inj SUBQ SCH ×5 (00:26→21:00)
[2016-11-14] MEDS: MethylprednisoLONE Sodium Succinate 40 mg/mL Inj IVPUSH SCH ×3 (00:29→16:50)
[2016-11-14] MEDS: Albuterol-Ipratropium 3 mL Inhalation Solution NEB SCH ×6 (00:30→20:09)
[2016-11-14] MEDS: Cefepime Inj 2,000 MG in Dextrose 5% Minibag Plus 100 ML IV SCH ×4 (00:34→16:51)
[2016-11-14] MEDS: Heparin 5,000 Unit/mL Inj SUBQ SCH ×3 (00:34→16:51)
--- NOTE | 2016-11-14 08:06 | OP ---
[address] [address] OPERATIVE REPORT PATIENT: NARESH KHALIL : 1955 MR#: [id number] ADMIT: 11/12/2016 JOB ID: [id number] DATE OF SURGERY: 11/12/2016 PREOPERATIVE DIAGNOSIS(ES): 1. Left ureteral calculus. 2. Left hydronephrosis. 3. Sepsis. POSTOPERATIVE DIAGNOSIS(ES): 1. Left ureteral calculus. 2. Left hydronephrosis. 3. Sepsis. PROCEDURE: 1. Cystoscopy. 2. Left ureteral stent placement. SURGEON: Carlos Samayoa MD CLINICAL QUALITY ASSURANCE SPECIALIST: None. ANESTHESIA: General. ESTIMATED BLOOD LOSS: Less than 5 mL. SPECIMENS: Urine culture from left kidney sent to microbiology lab. DRAINS: 26 cm x 6-[place] left ureteral double-J stent. COMPLICATIONS: None. CONDITION: Stable. FINDINGS: Cystoscopy revealed no bladder calculi or tumors. Mildly cloudy urine was drained from the left renal pelvis. Moderate left hydronephrosis was seen. Left ureteral stent was placed. INDICATIONS: The patient is a 61-year-old female with left ureteral calculus, left hydronephrosis and sepsis. The patient has been started on IV fluid resuscitation and IV antibiotics with vancomycin and ceftriaxone. The patient now presents for cystoscopy and left ureteral stent placement. DESCRIPTION OF PROCEDURE: The patient was brought to the operating room and placed supine on the operating room table. The patient was given ceftriaxone and vancomycin IV antibiotics earlier in the emergency department. Sequential compression device boots were placed. General anesthesia was administered. The patient was brought down into the dorsal lithotomy position. The patient was prepped and draped in standard surgical fashion. A 22-[place] rigid cystoscope was placed through the urethra, and into the bladder without difficulty. Cystoscopy revealed no bladder calculi or tumors, and bilateral ureteral orifices in normal position. An angle tip Ultratrack guidewire was passed into the left ureteral orifice and passed up the left ureter into the left renal pelvis. A 5-[place] open-ended catheter was passed over the guidewire, up the left ureter into the left renal pelvis. The guidewire was removed. Urine was drained from left renal pelvis and mildly cloudy urine was drained from the left renal pelvis. This urine was sent to the microbiology laboratory as urine culture from the left kidney. After all the urine was drained from the left renal collecting system, a small amount of contrast was instilled into the left renal collecting system to illuminate the left renal collecting system to aid in stent placement. Moderate left hydronephrosis was seen. The Ultratrack guidewire was passed through the open-ended catheter, up the left ureter into the left renal pelvis. Open-ended catheter was removed. A 26 cm x 6-[place] ureteral double-J stent, with the stent string removed prior to stent placement, was passed over the guidewire, through the urethra and bladder and up the left ureter and into the left renal pelvis, and was placed so that the proximal pigtail was located in the left renal pelvis and distal pigtail was located in the bladder. The guidewire was removed. Correct position of the stent was confirmed both fluoroscopically and under direct visualization using the cystoscope. Good efflux of contrast and mildly cloudy urine could be seen draining from the distal end of the stent into the bladder, further confirming correct stent positioning. Thus, left ureteral stent was placed. The bladder was drained via the cystoscope. The scope was removed from the patient. Skin was cleaned and dried. The patient was placed in supine position. The patient was awakened from general anesthesia and transferred to the recovery room in stable condition. The patient tolerated the procedure well. POSTOPERATIVE PLAN: Is for the [facility] under the care of the hospitalist, Dr. Pillai. Recommend continuing broad-spectrum IV antibiotics and IV fluid hydration, starting Flomax and straining urine.
[2016-11-14] MEDS: 0.9% Sodium Chloride 1,000 ML IV SCH (09:34)
[2016-11-14] MEDS: Lactobacillus Rhamnosus 10 Bil Unit Capsule PO SCH ×3 (09:34→16:51)
[2016-11-14] MEDS: buPROPion SR 100 mg ER12 Tablet PO SCH (09:34)
[2016-11-14] MEDS: Pantoprazole 20 mg ER24 Tablet PO SCH ×2 (09:35→20:03)
--- NOTE | 2016-11-14 11:13 | PCM.PNSURG ---
Subjective Date of Service: Nov 14, 2016 Date of Service: Nov 14, 2016 Subjective: Patient reports occasional minimal L back discomfort (not requiring pain meds), no flank or abdominal pain or discomfort, no nausea, no vomiting, tolerating full PO, no difficulty voiding, no gross hematuria. Patient has not seen a stone in the urine. Objective Vital Sign- Last 8 Hours Date Time Temp Pulse Resp B/P Pulse Ox O2 Delivery O2 Flow Rate FiO2 11/14/16 08:05 78 22 98 Nasal Cannula 1.50 11/14/16 05:34 36.8 79 18 164/95 96 Room Air 11/14/16 05:02 83 20 95 Room Air Intake and Output- Last 8 Hour 11/14/16 Cumulative From/Thru 07:00 11/12/16 06:30 - 11/14/16 06:49 Intake Total 1653 ml 7945 ml Output Total 750 ml 2655 ml Balance 903 ml 5290 ml Intake Oral 200 ml 1537 ml IV Total 1453 ml 6408 ml Output Urine Total 750 ml 2650 ml Estimated Blood Loss 5 ml # Bowel Movements 0 Voided urine output: 750ml last 8hr. shift General: Alert, Oriented X3, Cooperative, No Acute Distress Neck: Supple Lungs: Normal Air Movement Abdomen: Soft, Non-tender, Non-distended, No masses Neuro: Normal Speech, Sensation Intact Catheters: None Result Diagram: 11/13/16 0739 11/13/16 0739 Lab & Micro Results: 11/12/16: Urine Cx (intra-op, from L kidney): <10,000 mixed UG dontae Blood Cx: negative to date Assessment & Plan Impression POD #2, s/p cystoscopy and L ureteral stent placement (for L ureteral calculus, L hydronephrosis, sepsis), doing well post-op with resolved fever, hemodynamically stable, with good urine output, with labs yesterday showing normal WBC (9.2) and normal Cr (0.86) Problems: Plan Recommend continuing Abx Encourage PO fluid hydration (drink at least 10-12 8oz. glasses (3 liters) of fluids per day) Recommend continuing Flomax and straining urine Recommend following up on Cx results from [facility] and final blood Cx results from here When patient is discharged home, she should be discharged home on appropriate Abx, Flomax, and pain meds, with instructions to strain her urine and drink at least 10-12 8oz. glasses (3 liters) of fluids per day, with follow-up in urology in 2 weeks (with a KUB prior to appt.). Plan was discussed with patient and her . Case discussed with hospitalist Dr. Poe VTE Prophylaxis: Sub-Q Heparin (Unfractionated), SCDs Resuscitation Status: CPR: Attempt Resuscitation Carlos Samayoa MD Nov 14, 2016 11:13 Problems: VTE Prophylaxis: Sub-Q Heparin (Unfractionated) Resuscitation Status: CPR: Attempt Resuscitation Carlos Samayoa MD Nov 14, 2016 11:13
[2016-11-14] MEDS ORDERED: Furosemide 10 mg/mL 4 mL Inj IVPUSH ONE (13:15)
--- NOTE | 2016-11-14 13:25 | PCM.PNMED ---
Subjective Date of Service Nov 14, 2016 Subjective Short of breath and wheezy. She has a H/O COPD. No chest pain. Acute on chronic lumbar pain. Some flank pain. No nausea. No overnight events. Exam Vital Signs Vital Sign - Last Date Time Temp Pulse Resp B/P Pulse Ox O2 Delivery O2 Flow Rate FiO2 11/14/16 11:47 92 22 98 Nasal Cannula 1.50 11/14/16 05:34 36.8 164/95 Intake and Output 11/13/16 11/13/16 11/14/16 Cumulative From/Thru 15:00 23:00 07:00 11/12/16 06:30 - 11/14/16 06:49 Intake Total 400 ml 1940 ml 1653 ml 7945 ml Output Total 950 ml 950 ml 750 ml 2655 ml Balance -550 ml 990 ml 903 ml 5290 ml Intake Oral 400 ml 937 ml 200 ml 1537 ml IV Total 1003 ml 1453 ml 6408 ml Output Urine Total 950 ml 950 ml 750 ml 2650 ml Estimated Blood Loss 5 ml # Bowel Movements 0 0 0 Exam respiratory distress and tachypnea. Alert and oriented Anicteric sclera Lungs with diffuse wheezing and increased rate and work of breathing. Heart regular without murmur Abdomen soft and non distended. No leg edema No rash IVs and Medications Medications Reviewed: Medications were reviewed in detail Lab and Diagnostics Result Diagram: 11/13/1673811/13/16738 Microbiology RUN DATE: 11/13/16 [facility] LAB LIVE PAGE 1 RUN TIME: 0649 Specimen Inquiry PHYSICIAN Name: NARESH KHALIL Age/Sex: 61/F Attend Dr: Evie Castano MD Acct: [id number] Unit: [id number] Status: ADM IN Location: [facility] [place] 3023-1 Re11/12/16 Disch: Specimen: [id number] Collected: 11/12/16 Status: RES Req#: [id number] Received: 11/12/16 Source: URINE,KID Sp Desc : PP Subm Dr: Carlos Samayoa MD Ordered: URINE CULT Procedure Result Verified Site Microbiology JANINE CULT URINE Preliminary 11/13/16 No growth to date X-Rays, CTs and MRIs Patient Name: NARESH KHALIL MR#: [id number] Location: [facility] Phys: Evie Castano MD Date of Service: 11/13/16721 PROCEDURE: X-RAY CHEST ONE VIEW, PORTABLE ([id number]) INDICATIONS: shortness of breath TECHNIQUE: One view of the chest was acquired. COMPARISON: 10/09/2016 FINDINGS: Surgical changes and devices: None. Lungs and pleura: No pleural effusions or pneumothorax. Lungs show diminished inspiration with mild, diffusely accentuated interstitial markings, no focal consolidation. Mediastinum: Mediastinal contours appear normal. Heart size is normal. Bones and chest wall: No suspicious bony lesions. Overlying soft tissues appear unremarkable. IMPRESSION: Low volume exam accentuating interstitial markings. Possibility of viral or atypical pneumonia cannot be excluded. Dictated by: Vance John M.D. on 11/13/2016 at 8:04 Approved by: Vance John M.D. on 11/13/2016 at 8:05 PROCEDURE: X-RAY RETROGRADE UROGRAPHY INDICATIONS: C-ARM ASSISTED LEFT STENT PLACEMENT TECHNIQUE: 3 intra-operative images acquired by the Urology service. COMPARISON: Outside Film, CT, CT ABD PELVIS WO CON, 11/11/2016, 23:21. FINDINGS: 3 intraoperative fluoroscopic views demonstrate placement of a left ureteral stent with the proximal coil in the pelvis and the distal coil in the region of the bladder. There is dilatation of the opacified left renal system. IMPRESSION: 1. Fluoroscopy provided for left ureteral stent placement. Dictated by: Juan Mann M.D. on 11/12/2016 at 21:29 Approved by: Juan Mann M.D. on 11/12/2016 at 21:31 Additional Diagnostics Immediate Operative Note Date of Surgery: Nov 12, 2016 Pre Operative Diagnosis L ureteral calculus, L hydronephrosis, sepsis Post Operative Diagnosis L ureteral calculus, L hydronephrosis, sepsis Procedure Cystoscopy and L ureteral stent placement Surgeon and Convalescent Sitter Surgeon: Carlos Samayoa MD Assistants: None Findings Cystoscopy revealed no bladder calculi or tumors. Mildly cloudy urine was drained from L renal pelvis. Moderate L hydronephrosis was seen. L ureteral stent was placed. Complications There were no periprocedural complications identified. Surgical Specimen Removed: Yes Specimen sent to Pathology: No Surgical Specimen description: Urine Cx from L kidney sent to micro lab Anesthetic Administered: GA Grafts, Implants: Other (26cm x 6F L ureteral JJ stent (no string)) Output, Estimated Blood Loss: <5 Blood Admin during surgery: No Additional information Patient to be transferred to [facility] when stable under care of hospitalist Dr. Pillai. Recommend continuing broad-spectrum IV Abx and IVF hydration, starting Flomax, and straining urine. Carlos Samayoa MD Nov 12, 2016 15:30 <Electronically signed by Carlos Samayoa MD> 11/12/16 1542 Assessment & Plan #. Acute pyelonephritis with sepsis, present on admission and improving. -continue cefepime and await cultures. #. Kidney stone S/P cystoscopy with stenting. Flomax. #. Acute COPD exacerbation, not present on admission and active. -continue medrol and recheck CXR. -lasix 40 IV times one now. #. Type 2 diabetes, chronic, present on admission and stable. -Hold metformin and continue with correction dose insulin scale #. Depression, chronic, present on admission -Stable on current medications which we will continue #. Hypertension, chronic, present on admission and stable. -Continue with Tenex lisinopril and monitor #. GERD, chronic, present on admission and stable. -Continue patient's home Prilosec #DVT prophylaxis -SCDs and subcutaneous prophylactic heparin #CODE STATUS -Full code VTE Prophylaxis: Sub-Q Heparin (Unfractionated), SCDs VTE Mechanical Devices: Intermittant Pneumatic CD Resuscitation Status: CPR: Attempt Resuscitation Richard Poe MD Nov 14, 2016 13:24
--- NOTE | 2016-11-14 15:14 | DRSVH ---
PROCEDURE: X-RAY CHEST ONE VIEW ([id number]) INDICATIONS: dyspnea TECHNIQUE: One view of the chest was acquired. COMPARISON: [facility], CR, XR CHEST 1VW (PORTABLE), 11/13/2016, 7:33. FINDINGS: Surgical changes and devices: None. Lungs and pleura: No pleural effusions or pneumothorax. Interstitial prominence and Joe B-lines n oted. Mediastinum: Mediastinal contours appear normal. Heart size is normal. Bones and chest wall: No suspicious bony lesions. Overlying soft tissues appear unremarkable. Old r ight rib fractures stable. IMPRESSION: Pulmonary edema which is nonspecific but could be related to atypical or viral pneumonia. Dictated by: Milana Rendon MD, PhD on 11/14/2016 at 15:10 Approved by: Milana Rendon MD, PhD on 11/14/2016 at 15:12
[2016-11-14] MEDS ORDERED: LORazepam 0.5 mg Tablet PO ONE (20:30)
[2016-11-14] MEDS: Polyethylene Glycol (PEG) 17 Gm Powder PO PRN (20:53)
[2016-11-14] MEDS ORDERED: Labetalol 5 mg/mL 20 mL Inj IV ONE (22:35)
[2016-11-15] VITALS (13 sets, daily range): BP systolic 161–181; BP diastolic 79–89; PULSE 59–87; RESP 18–20; O2SAT 97–99
[2016-11-15] MEDS: Albuterol-Ipratropium 3 mL Inhalation Solution NEB SCH ×7 (00:30→23:45)
[2016-11-15] MEDS ORDERED: MethylprednisoLONE Sodium Succinate 62.5 mg/mL 2 mL Inj IVPUSH ONE (00:30)
[2016-11-15] MEDS: Heparin 5,000 Unit/mL Inj SUBQ SCH ×3 (01:00→17:23)
[2016-11-15] MEDS ORDERED: Labetalol 5 mg/mL 20 mL Inj IV ONE (03:25)
[2016-11-15] MEDS ORDERED: Insulin LISPRO 300 Unit/3 mL Inj SUBQ ONE (03:25)
[2016-11-15 08:13] LABS: Mean Corpuscular Hemoglobin 25.3 pg (27.0-35.0); Mean Corpuscular Volume 83.9 fL (81-100)
[2016-11-15] MEDS: Insulin LISPRO 300 Unit/3 mL Inj SUBQ SCH ×4 (08:49→21:52)
[2016-11-15] MEDS: Pantoprazole 20 mg ER24 Tablet PO SCH ×2 (08:50→20:27)
[2016-11-15] MEDS: predniSONE 20 mg Tablet PO SCH (08:50)
[2016-11-15] MEDS: Lactobacillus Rhamnosus 10 Bil Unit Capsule PO SCH ×3 (08:51→17:25)
[2016-11-15] MEDS ORDERED: Insulin GLARgine 100 Unit/mL Syringe SUBQ ONE ×2 (09:40→17:05)
[2016-11-15] MEDS: buPROPion XL 300 mg ER24 Tablet PO SCH (10:54)
[2016-11-15] MEDS ORDERED: Sodium Biphos-Phos 133 mL Enema RECTAL ONE (14:15)
[2016-11-15] MEDS ORDERED: Dextrose 10% 250 ML IV PRN (15:10)
--- NOTE | 2016-11-15 17:09 | PCM.PNMED ---
Subjective Date of Service Nov 15, 2016 Subjective She is doing well better today. Left flank pain. No fevers or chills. She was short of breath yesterday but diuresed and did well. She is able to come off from oxygen this morning. No fevers or chills. She was constipated throughout the day and finally had a bowel movement at the end of the day Her blood sugars became very high this afternoon. Exam Vital Signs Vital Sign - Last Date Time Temp Pulse Resp B/P Pulse Ox O2 Delivery O2 Flow Rate FiO2 11/15/16 15:45 70 18 98 Room Air 11/15/16 09:13 36.8 164/80 1.50 Intake and Output 11/14/16 11/14/16 11/15/16 Cumulative From/Thru 15:00 23:00 07:00 11/12/16 06:30 - 11/15/16 06:56 Intake Total 1483 ml 225 ml 9653 ml Output Total 2665 ml 3025 ml 8345 ml Balance -1182 ml -2800 ml 1308 ml Intake Oral 1180 ml 225 ml 2942 ml IV Total 303 ml 6711 ml Output Urine Total 2665 ml 3025 ml 8340 ml Estimated Blood Loss 5 ml # Bowel Movements 0 Exam Alert and oriented -3, no distress. Fluent speech Anicteric sclera. Lungs are clear with normal rate and effort Heart is regular without murmur gallop or rub Abdomen soft nontender, flat Extremities are free of edema. Skin is free of rash or lesions. IVs and Medications Medications Reviewed: Medications were reviewed in detail Lab and Diagnostics Result Diagram: 11/15/16 0753 11/15/16 0753 Microbiology RUN DATE: 11/13/16 [facility] LAB LIVE PAGE 1 RUN TIME: 648 Specimen Inquiry PHYSICIAN Name: NARESH KHALIL Age/Sex: 61/F Attend Dr: Evie Castano MD Acct: [id number] Unit: [id number] Status: ADM IN Location: [facility] [place] 3023-1 Re11/12/16 Disch: Specimen: [id number] Collected: 11/12/16 Status: RES Req#: [id number] Received: 11/12/16 Source: URINE,KID Sp Desc : TARIQ Rose Dr: Carlos Samayoa MD Ordered: URINE CULT Procedure Result Verified Site Microbiology JANINE CULT URINE Preliminary 11/13/16-648 No growth to date X-Rays, CTs and MRIs Patient Name: NARESH KHALIL MR#: [id number] Location: [facility] [place] Ordering Phys: Evie Castano MD Date of Service: 11/13/16 07 PROCEDURE: X-RAY CHEST ONE VIEW, PORTABLE ([id number]) INDICATIONS: shortness of breath TECHNIQUE: One view of the chest was acquired. COMPARISON: 10/09/2016 FINDINGS: Surgical changes and devices: None. Lungs and pleura: No pleural effusions or pneumothorax. Lungs show diminished inspiration with mild, diffusely accentuated interstitial markings, no focal consolidation. Mediastinum: Mediastinal contours appear normal. Heart size is normal. Bones and chest wall: No suspicious bony lesions. Overlying soft tissues appear unremarkable. IMPRESSION: Low volume exam accentuating interstitial markings. Possibility of viral or atypical pneumonia cannot be excluded. Dictated by: Vance John M.D. on 11/13/2016 at 8:04 Approved by: Vance John M.D. on 11/13/2016 at 8:05 PROCEDURE: X-RAY RETROGRADE UROGRAPHY INDICATIONS: C-ARM ASSISTED LEFT STENT PLACEMENT TECHNIQUE: 3 intra-operative images acquired by the Urology service. COMPARISON: Outside Film, CT, CT ABD PELVIS WO CON, 11/11/2016, 23:21. FINDINGS: 3 intraoperative fluoroscopic views demonstrate placement of a left ureteral stent with the proximal coil in the pelvis and the distal coil in the region of the bladder. There is dilatation of the opacified left renal system. IMPRESSION: 1. Fluoroscopy provided for left ureteral stent placement. Dictated by: Juan Mann M.D. on 11/12/2016 at 21:29 Approved by: Juan Mann M.D. on 11/12/2016 at 21:31 Additional Diagnostics Immediate Operative Note Date of Surgery: Nov 12, 2016 Pre Operative Diagnosis L ureteral calculus, L hydronephrosis, sepsis Post Operative Diagnosis L ureteral calculus, L hydronephrosis, sepsis Procedure Cystoscopy and L ureteral stent placement Surgeon and Medicaid Analyst Surgeon: Carlos Samayoa MD Assistants: None Findings Cystoscopy revealed no bladder calculi or tumors. Mildly cloudy urine was drained from L renal pelvis. Moderate L hydronephrosis was seen. L ureteral stent was placed. Complications There were no periprocedural complications identified. Surgical Specimen Removed: Yes Specimen sent to Pathology: No Surgical Specimen description: Urine Cx from L kidney sent to micro lab Anesthetic Administered: GA Grafts, Implants: Other (26cm x 6F L ureteral JJ stent (no string)) Output, Estimated Blood Loss: <5 Blood Admin during surgery: No Additional information Patient to be transferred to [facility] when stable under care of hospitalist Dr. Pillai. Recommend continuing broad-spectrum IV Abx and IVF hydration, starting Flomax, and straining urine. Carlos Samayoa MD Nov 12, 2016 15:30 <Electronically signed by Carlos Samayoa MD> 11/12/16 7902 Assessment & Plan #. Acute pyelonephritis with sepsis, present on admission and resolved. -Continue Cipro by mouth #. Kidney stone S/P cystoscopy with stenting. She is status post stenting. She will be discharged on Flomax, as well as antibiotics with a one-week follow- up with Dr. Samayoa of urology and she will continue straining her urine to see if she passes the stone. #. Acute COPD exacerbation, not present on admission and active and improving.. -continue medrol and recheck CXR. #. Acute diastolic heart failure, not present on admission and improved. She was hypoxic yesterday and did improve with diuresis. She is able to wean off oxygen today. #. Type 2 diabetes, chronic, present on admission and uncontrolled this afternoon.. -Hold metformin and continue with correction dose insulin scale She will have an up titration of Lantus with an additional 15 given this afternoon and then tonight. She will correction lispro. She will resume metformin upon discharge with likely be tomorrow morning. #. Depression, chronic, present on admission -Stable on current medications which we will continue #. Hypertension, chronic, present on admission and stable. -Continue with Tenex lisinopril and monitor #. GERD, chronic, present on admission and stable. -Continue patient's home Prilosec #DVT prophylaxis -SCDs and subcutaneous prophylactic heparin #CODE STATUS -Full code We will hold her discharge tonight given her hyperglycemia was afternoon with glucose of over 400. We will adjust up her insulin and plan on discharging her with a morning dose of metformin tomorrow which is her usual medication if she is stable. The point we will continue her on Cipro for the next 10 days until follow-up with Dr. Samayoa in about 1 week. Also Flomax daily. We see Dr. Samayoa's note for specific recommendations. Also note her urine culture at [facility] as well as here both grew urogenital dontae. VTE Prophylaxis: Sub-Q Heparin (Unfractionated), SCDs VTE Mechanical Devices: Intermittant Pneumatic CD Resuscitation Status: CPR: Attempt Resuscitation Richard Poe MD Nov 15, 2016 17:09
[2016-11-15] MEDS ORDERED: Insulin GLARgine 100 Unit/mL Syringe SUBQ SCH ×2 (21:00)
[2016-11-16 00:31] VITALS: BP 170/87; PULSE 57; RESP 20; O2SAT 97
[2016-11-16] MEDS: Heparin 5,000 Unit/mL Inj SUBQ SCH ×2 (01:21→08:31)
[2016-11-16] MEDS: Albuterol-Ipratropium 3 mL Inhalation Solution NEB SCH ×3 (04:26→12:00)
[2016-11-16 05:57] VITALS: BP 166/85; PULSE 56; RESP 20; O2SAT 96
[2016-11-16] MEDS: Insulin LISPRO 300 Unit/3 mL Inj SUBQ SCH (08:00)
[2016-11-16 08:10] VITALS: PULSE 68; RESP 20; O2SAT 99
[2016-11-16] MEDS: predniSONE 20 mg Tablet PO SCH (08:30)
[2016-11-16] MEDS: Pantoprazole 20 mg ER24 Tablet PO SCH (08:30)
[2016-11-16] MEDS: Lactobacillus Rhamnosus 10 Bil Unit Capsule PO SCH (08:32)
[2016-11-16] MEDS: buPROPion XL 300 mg ER24 Tablet PO SCH (08:33)
[2016-11-16] MEDS ORDERED: TAMS0.4C98 PO (10:39)
[2016-11-16] MEDS ORDERED: HYDR-4003 PO (10:39)
[2016-11-16] MEDS ORDERED: PRED-508 PO (10:39)
[2016-11-16] MEDS ORDERED: CIPR-231 PO (10:39)
[2016-11-16] MEDS ORDERED: LORA0.5T PO (10:40)
--- NOTE | 2016-11-16 10:45 | PCM.DIMED ---
Discharge Instructions Date of Service Nov 16, 2016 Dates of Hospitalization Nov 12, 2016 at 09:17 Discharge Diagnosis Discharge Diagnosis Pyelonephritis with kidney stone COPD exacerbation Diet Discharge Diet: Heart Healthy Call your provider Call your provider for: Fever or Chills, Vomitting, Excessive diarrhea Patient Instructions Follow-up with PCP in: 1 week Provider: Carlos Samayoa MD Follow-up in: 2 weeks (KUB do be done before the appointment) Additional Information drink at least 10-12 8oz. glasses (3 liters) of fluids per day Savage Mcrae MD Nov 16, 2016 10:45
--- NOTE | 2016-11-16 10:53 | PCM.DC.MED ---
Discharge Summary Date of Service Nov 16, 2016 Dates of Hospitalization Date of Hospital Admission Nov 12, 2016 at 09:17 Date of Discharge: Nov 16, 2016 Providers: Admitting Physician: Sharath Pillai MD Primary Care Physician: Lourdes Macias [facility] Attending Physician: Mildred Martin MD Diagnosis at Time of Discharge Diagnosis at Time of Discharge Pyelonephritis with kidney stone COPD exacerbation Procedures XRay, CTs & MRIs Patient Name: NARESH KHALIL MR#: [id number] [place] [facility] [place] Ordering Phys: Evie Castano MD Date of Service: 11/13/16 0722 PROCEDURE: X-RAY CHEST ONE VIEW, PORTABLE ([id number]) INDICATIONS: shortness of breath TECHNIQUE: One view of the chest was acquired. COMPARISON: 10/09/2016 FINDINGS: Surgical changes and devices: None. Lungs and pleura: No pleural effusions or pneumothorax. Lungs show diminished inspiration with mild, diffusely accentuated interstitial markings, no focal consolidation. Mediastinum: Mediastinal contours appear normal. Heart size is normal. Bones and chest wall: No suspicious bony lesions. Overlying soft tissues appear unremarkable. IMPRESSION: Low volume exam accentuating interstitial markings. Possibility of viral or atypical pneumonia cannot be excluded. Dictated by: Vance John M.D. on 11/13/2016 at 8:04 Approved by: Vance John M.D. on 11/13/2016 at 8:05 PROCEDURE: X-RAY RETROGRADE UROGRAPHY INDICATIONS: C-ARM ASSISTED LEFT STENT PLACEMENT TECHNIQUE: 3 intra-operative images acquired by the Urology service. COMPARISON: Outside Film, CT, CT ABD PELVIS WO CON, 11/11/2016, 23:21. FINDINGS: 3 intraoperative fluoroscopic views demonstrate placement of a left ureteral stent with the proximal coil in the pelvis and the distal coil in the region of the bladder. There is dilatation of the opacified left renal system. IMPRESSION: 1. Fluoroscopy provided for left ureteral stent placement. Dictated by: Juan Mann M.D. on 11/12/2016 at 21:29 Approved by: Juan Mann M.D. on 11/12/2016 at 21:31 Other Diagnostics Immediate Operative Note Date of Surgery: Nov 12, 2016 Pre Operative Diagnosis L ureteral calculus, L hydronephrosis, sepsis Post Operative Diagnosis L ureteral calculus, L hydronephrosis, sepsis Procedure Cystoscopy and L ureteral stent placement Surgeon and Customs Opener Verifier Packer Surgeon: Carlos Samayoa MD Assistants: None Findings Cystoscopy revealed no bladder calculi or tumors. Mildly cloudy urine was drained from L renal pelvis. Moderate L hydronephrosis was seen. L ureteral stent was placed. Complications There were no periprocedural complications identified. Surgical Specimen Removed: Yes Specimen sent to Pathology: No Surgical Specimen description: Urine Cx from L kidney sent to micro lab Anesthetic Administered: GA Grafts, Implants: Other (26cm x 6F L ureteral JJ stent (no string)) Output, Estimated Blood Loss: <5 Blood Admin during surgery: No Additional information Patient to be transferred to [facility] when stable under care of hospitalist Dr. Pillai. Recommend continuing broad-spectrum IV Abx and IVF hydration, starting Flomax, and straining urine. Carlos Samayoa MD Nov 12, 2016 15:30 <Electronically signed by Carlos Samayoa MD> 11/12/16 9292 Hospital Course #. Acute pyelonephritis with sepsis, present on admission and resolved. -Continue Cipro by mouth #. Kidney stone S/P cystoscopy with stenting. She is status post stenting. She will be discharged on Flomax, as well as antibiotics with a one-week follow- up with Dr. Samayoa of urology and she will continue straining her urine to see if she passes the stone. #. Acute COPD exacerbation, not present on admission and active and improving.. -Prednisone X 5 days #. Acute diastolic heart failure, not present on admission and improved. She was hypoxic yesterday and did improve with diuresis. She is able to wean off oxygen today. #. Type 2 diabetes, chronic, present on admission and uncontrolled this afternoon.. -Hold metformin and continue with correction dose insulin scale She will have an up titration of Lantus with an additional 15 given this afternoon and then tonight. She will correction lispro. She will resume metformin upon discharge with likely be tomorrow morning. #. Depression, chronic, present on admission -Stable on current medications which we will continue #. Hypertension, chronic, present on admission and stable. - elevated, likely 2/2 steroids and pain, will continue home dose of meds, patient instructed to increase lisinopril to 20 if bp stays consistently above 180s systolic #. GERD, chronic, present on admission and stable. -Continue patient's home Prilosec #DVT prophylaxis -SCDs and subcutaneous prophylactic heparin #CODE STATUS -Full code . Exam Vital Signs (Last) Date Time Temp Pulse Resp B/P Pulse Ox O2 Delivery O2 Flow Rate FiO2 11/16/16 08:10 68 20 99 Room Air 11/16/16 05:57 36.7 166/85 11/15/16 09:13 1.50 Test 11/12/16 07:05 11/12/16 15:48 11/13/16 07:33 11/13/16 07:39 Prothrombin Time 10.8sec (8.1-12.5) Prothromb Time International Ratio 1.01ratio Hemoglobin A1c 5.8% (4.8-5.6) Magnesium Level 1.3mg/dL (1.6-2.6) Total Bilirubin 0.3mg/dL (0.0-1.2) Aspartate Amino Transf (AST/SGOT) 26U/L (0-50) Alanine Aminotransferase (ALT/SGPT) 17U/L (0-32) Alkaline Phosphatase 82U/L (25-165) Total Protein 7.2g/dL (6.4-8.4) Albumin 3.8g/dL (3.4-5.0) Lipase 63U/L (13-60) Urine Color Straw (YELLOW) Urine Appearance Cloudy (CLEAR,HAZY) Urine pH 6.5 (5.0-8.0) Urine Specific [place] 1.005 (1.003-1.035) Urine Protein 30mg/dL (NEG,TRACE) Urine Glucose (UA) Negativemg/dL (NEGATIVE) Urine Ketones Negativemg/dL (NEGATIVE) Urine Occult Blood Large (NEGATIVE) Urine Nitrite Negative (NEGATIVE) Urine Bilirubin Negative (NEGATIVE) Urine Urobilinogen Normalmg/dL (NORMAL) Urine Leukocyte Esterase Moderate (NEGATIVE) Urine RBC >50/hpf (0-2) Urine WBC 11-50/hpf (0-5) Urine Epithelial Cells Occasional/hpf (NONE-MOD) Urine Crystals None seen (NONE SEEN) Urine Bacteria Few/hpf (NONE-FEW) Urine Hyaline Casts None/lpf (NONE) Urine Granular Casts None seen (NONE SEEN) Urine Waxy Casts None seen (NONE SEEN) Urine Red Blood Cell Casts None seen (NONE SEEN) Urine White Blood Cell Casts None seen (NONE SEEN) Urine Mucus None seen (None Seen) Urine Trichomonas None seen (NONE SEEN) Urine Yeast None (NONE SEEN) Urinalysis Comment None Urine Culture Reflexed Indicated Lactic Acid Level 2.1mmol/L (0.4-2.0) Neutrophils (%) (Auto) 71.4% (40-74) Lymphocytes (%) (Auto) 9.4% (14-46) Monocytes (%) (Auto) 9.4% (4-12) Eosinophils (%) (Auto) 7.5% (0-5) Basophils (%) (Auto) 0.8% (0-3) Hematology Comments Rbc Procalcitonin 0.69ng/mL (0.00-0.08) Test 11/15/16 07:53 White Blood Count 8.6th/mm3 (3.8-10.1) Red Blood Count 2.92mil/mm3 (3.90-5.20) Hemoglobin 7.4g/dL (12.0-15.6) Hematocrit 24.5% (35.0-46.0) Mean Corpuscular Volume 83.9fL (81-100) Mean Corpuscular Hemoglobin 25.3pg (27.0-35.0) Mean Corpuscular Hemoglobin Concent 30.2% (32.0-37.0) Red Cell Distribution Width 14.7% (12.3-15.4) Platelet Count 198bil/L (150-400) Sodium Level 138mEq/L (134-144) Potassium Level 3.8mEq/L (3.5-5.2) Chloride Level 95mEq/L (97-108) Carbon Dioxide Level 25mmol/L (18-29) Blood Urea Nitrogen 22mg/dL (8-27) Creatinine 0.86mg/dL (0.57-1.00) Estimat Glomerular Filtration Rate 96mL/min (>59) Glucose Level 239mg/dL (60-99) Calcium Level 9.0mg/dL (8.5-10.1) Microbiology Results RUN DATE: 11/13/16 [facility] LIVE PAGE 1 RUN TIME: 9184 Specimen Inquiry PHYSICIAN Name: NARESH KHALIL Age/Sex: 61/F Attend Dr: Evie Castano MD Acct: [id number] Unit: [id number] Status: ADM IN [place]: [facility] [place] 3023-1 Re11/12/16 Disch: Specimen: [id number] Collected: 11/12/16 Status: RES Req#: [id number] Received: 11/12/16 Source: URINE,KID Sp Desc : PP Rose Dr: Carlos Samayoa MD Ordered: URINE CULT Procedure Result Verified Site Microbiology JANINE CULT URINE Preliminary 11/13/16 No growth to date Discharge Medications Discharge Medications Bupropion ER (Wellbutrin SR) 100 Mg Tablet.er 300 MG PO DAILY (Reported) Ciprofloxacin (Cipro) 500 Mg Tablet 500 MG PO BID Prescribed by: MILDRED MARTIN MD Fluoxetine (Prozac) 20 Mg Cap 60 MG PO DAILY (Reported) Gabapentin (Gabapentin) 300 Mg Capsule 900 MG PO TID (Reported) Guanfacine (Guanfacine) 2 Mg Tablet 2 MG PO HS (Reported) Lisinopril (Lisinopril) 20 Mg Tablet 10 MG PO DAILY (Reported) Metformin (Glucophage) 1,000 Mg Tablet 1,000 MG PO BID (Reported) Multivits-Min/FA/Lycopene/Lut (Centrum Silver Tablet) 1 Each Tablet 1 EACH PO DAILY (Reported) Omeprazole (Omeprazole) 20 Mg Tablet.dr 20 MG PO BID (Reported) Prednisone (Deltasone) 20 Mg Tablet 40 MG PO DAILY Prescribed by: MILDRED MARTIN MD Propranolol HCl (Propranolol HCl) 10 Mg Tablet 20 MG PO BID (Reported) Tamsulosin (Flomax) 0.4 Mg Capsule 0.4 MG PO DAILY Prescribed by: MILDRED MARTIN MD As needed Albuterol HFA (Proair HFA) 8.5 Gm Hfa.aer.ad 2 PUFFS INHALATION Q4H PRN PRN For Severe Pain (Reported) Hydrocodone-Acetaminophen 5-325 mg (Hydrocodone-Acetaminophen 5-325 mg) 1 Each Tablet 1 TABLET PO Q4H PRN PRN For Mild Pain Prescribed by: MILDRED MARTIN MD Lorazepam (Lorazepam) 0.5 Mg Tablet 0.5 MG PO BID PRN PRN For Insomnia Prescribed by: MILDRED MARTIN MD Promethazine (Promethazine) 25 Mg Tablet 25 MG PO Q6H PRN PRN For Nausea ( Reported) Followup Plan Discharge Diet: Heart Healthy Follow-up with PCP in: 1 week Provider: Carlos Samayoa MD Follow-up in: 2 weeks (KUB do be done before the appointment) Time spent 35 mins Mildred Martin MD Nov 16, 2016 10:53
[2016-11-16 12:01] VITALS: PULSE 68; RESP 18; O2SAT 99
== END 2016-11-16 12:15 | disposition home or self-care (01) | DRG 871 ==
LOC: EDUNIT# 06:13 → EDBD 06:13 → SED 06:13 → UNDOADMIN 09:17 → MOC 09:17 → MPC 09:17
PROVIDERS: ADMIT Hospitalist; ATTEND Internal Medicine
PROC: 0T778DZ Dilation of Left Ureter with Intraluminal Device, Via Natural or Artificial Opening Endoscopic (ICD-10-PCS; principal; 2016-11-12 15:00)
DX: A41.9 Sepsis, unspecified organism (principal); I50.31 Acute diastolic (congestive) heart failure; E87.2 Acidosis; E11.40 Type 2 diabetes mellitus with diabetic neuropathy, unspecified; J44.1 Chronic obstructive pulmonary disease with (acute) exacerbation; N13.6 Pyonephrosis; N39.0 Urinary tract infection, site not specified; N10 Acute pyelonephritis; Z79.84 Long term (current) use of oral hypoglycemic drugs; Z87.891 Personal history of nicotine dependence; Z86.14 Personal history of Methicillin resistant Staphylococcus aureus infection; B19.20 Unspecified viral hepatitis C without hepatic coma; F32.9 Major depressive disorder, single episode, unspecified; I10 Essential (primary) hypertension; K21.9 Gastro-esophageal reflux disease without esophagitis